=== PATIENT | male | born 1945 | race Caucasian/White ===

== ENCOUNTER 2016-10-31 18:13 | Emergency (ER) | payer MEDICARE, MEDICAID ==
[2016-10-31 18:42] LABS: ABSOLUTE BASOPHILS # (AUTO) 0.1 10^3/uL (0.0-0.2); ABSOLUTE EOSINOPHILS # (AUTO) 0.2 10^3/uL (0.0-0.6); ABSOLUTE LYMPHOCYTES (AUTO) 2.5 10^3/uL (0.5-4.7); ABSOLUTE MONOCYTES (AUTO) 0.5 10^3/uL (0.1-1.4); ABSOLUTE NEUT (AUTO) 3.7 10^3/uL (1.7-8.2); BASOPHILS % (AUTO) 0.8 % (0-2); EOSINOPHILS % (AUTO) 2.2 % (0-6); HEMATOCRIT 39.9 % (37.9-51.0); HEMOGLOBIN 13.5 g/dL (13.5-17.0); HGB HCT DIFFERENCE 0.6; LYMPHOCYTES % (AUTO) 35.9 % (13-45); MEAN CORPUSCULAR HEMOGLOBIN 29.6 pg (27.0-33.4); MEAN CORPUSCULAR HGB CONC 33.8 g/dL (32.0-36.0); MEAN CORPUSCULAR VOLUME 88 fl (80-97); MONOCYTES % (AUTO) 7.9 % (3-13); RED BLOOD COUNT 4.56 10^6/uL (4.35-5.55); RED CELL DISTRIBUTION WIDTH 16.5 % (11.5-14.0); SEGMENTED NEUTROPHILS % (AUTO) 53.2 % (42-78)
[2016-10-31 18:59] LABS: ALANINE AMINOTRANSFERASE 47 U/L (21-72); ALKALINE PHOSPHATASE 75 U/L (38-126); ANION GAP 14 (5-19); ASPARTATE AMINO TRANSFERASE 35 U/L (17-59); BILIRUBIN,TOTAL 0.5 mg/dL (0.2-1.3); BLOOD UREA NITROGEN 21 mg/dL (7-20); CALCIUM 10.6 mg/dL (8.4-10.2); CARBON DIOXIDE 26 mmol/L (22-30); CHLORIDE 103 mmol/L (98-107); CREATINE KINASE 174 U/L (55-170); CREATININE RESULT 1.41 mg/dL (0.52-1.25); GLUCOSE 135 mg/dL (75-110); POTASSIUM 4.2 mmol/L (3.6-5.0); SODIUM 142.7 mmol/L (137-145); TOTAL PROTEIN 6.9 g/dL (6.3-8.2)
[2016-10-31 19:12] LABS: TROPONIN I < 0.012 ng/mL
--- NOTE | 2016-10-31 20:47 | EKG REPORT ---
SEVERITY:- ABNORMAL ECG - SINUS RHYTHM RBBB AND LAFB : Confirmed by: Malu Kay MD 31-Oct-2016 20:45:36
[2016-10-31 22:33] VITALS: BP 162/84
--- NOTE | 2016-10-31 22:48 | ER Document Report ---
ED General - General Chief Complaint: Near Syncope Stated Complaint: SHORTNESS OF BREATH Notes: Patient is a 71-year-old male with past medical history of coronary artery disease, hypertension and hyperlipidemia who presents with a near syncopal episode. States that he was at a restaurant and got up to go to the restroom. He urinated and states when he began walking back to the table he began to feel lightheaded and somewhat short of breath. He was able to make it back to the table and sit down in his chair. States he's continued to be lightheaded and somewhat short of breath but was able to get up and lay down on the EMS stretcher without difficulty on his own. Since that time he states that his symptoms of all spontaneously resolved. He has had similar symptoms in the past. He denies any shortness of breath or chest pain at this time. He denies any chest pain during the episode. He also notes over the past 2 months he has had decreased exercise tolerance, noting that he is able to perform less activities at home secondary to becoming winded earlier than he used to. He has not spoken to his passport application examiner regarding his concerns. Denies anything improves or worsens his symptoms. No history of similar symptoms in the past. Denies any history of DVT or pulmonary embolus. TRAVEL OUTSIDE OF THE [place] IN LAST 30 DAYS: No - Related Data Allergies/Adverse Reactions: Sulfa (Sulfonamide Antibiotics) Allergy (Verified 01/31/16 13:51) Past Medical History - General Information source: Patient - Social History Smoking Status: Former Smoker Frequency of alcohol use: None Drug Abuse: None Lives with: Alone Family History: DM - Past Medical History Cardiac Medical History: Reports: Hx Atrial Fibrillation, Hx Hypercholesterolemia, Hx Hypertension Endocrine Medical History: Reports: Hx Diabetes Mellitus Type 2 Renal/ Medical History: Reports: Hx Kidney Stones Musculoskeltal Medical History: Reports Hx Arthritis, Reports Hx Gout Past Surgical History: Reports: Hx Appendectomy, Hx Cardiac Surgery - stent x2, Hx Cholecystectomy, Hx Urinary Tract Surgery - Bilateral ureteral stents placed 08-02-13. - Immunizations Immunizations up to date: No Hx Diphtheria, Pertussis, Tetanus Vaccination: No Review of Systems - Review of Systems Notes: Constitutional: Negative for fever. HENT: Negative for sore throat. Eyes: Negative for visual changes. Cardiovascular: Negative for chest pain. Respiratory: Negative for shortness of breath. Gastrointestinal: Negative for abdominal pain, vomiting or diarrhea. Genitourinary: Negative for dysuria. Musculoskeletal: Negative for back pain. Skin: Negative for rash. Neurological: Negative for headaches, weakness or numbness. 10 point ROS negative except as marked above and in HPI. Physical Exam - Vital signs Vitals: Temp Pulse Resp BP Pulse Ox 97.7 F 71 15 158/92 H 97 10/31/16 18:15 10/31/16 18:15 10/31/16 18:15 10/31/16 18:15 10/31/16 18:15 Interpretation: Hypertensive Notes: PHYSICAL EXAMINATION: GENERAL: Well-appearing, well-nourished and in no acute distress. HEAD: Atraumatic, normocephalic. EYES: Pupils equal round and reactive to light, extraocular movements intact, sclera anicteric, conjunctiva are normal. ENT: nares patent, oropharynx clear without exudates. Moist mucous membranes. NECK: Normal range of motion, supple without lymphadenopathy LUNGS: Breath sounds clear to auscultation bilaterally and equal. No wheezes rales or rhonchi. HEART: Regular rate and rhythm without murmurs ABDOMEN: Soft, nontender, normoactive bowel sounds. No guarding, no rebound. No masses appreciated. EXTREMITIES: Normal range of motion, no pitting or edema. No cyanosis. NEUROLOGICAL: No focal neurological deficits. Moves all extremities spontaneously and on command. PSYCH: Normal mood, normal affect. SKIN: Warm, Dry, normal turgor, no rashes or lesions noted. Course - Re-evaluation Re-evalutation: 10/31/16 22:45 Patient presents after a near syncopal episode with some apparent exertional dyspnea. At time of arrival patient is asymptomatic. He never had chest pain. His EKG is without ischemic changes. 2 troponins 3 hours apart are unremarkable. Patient has been having progressive weakness and worsening exertional dyspnea per his report over the last 2-3 months. The remainder of his labs are at baseline and his creatinine is somewhat improved relative to his normal. No focal exam findings. Patient does not have a murmur on exam to suggest critical aortic stenosis. Potassium level is normal. I have discussed with the patient that he will need to follow-up closely with his primary care physician as well as his passport application examiner as he may need a repeat stress test and catheterization given his progressively worsening exertional dyspnea. He is in agreement with this plan and has verbalized the need for close outpatient follow -up as well as return precautions. - Vital Signs Vital signs: Temp Pulse Resp BP Pulse Ox 98.2 F 71 13 162/84 H 97 10/31/16 23:01 10/31/16 18:15 10/31/16 22:01 10/31/16 22:01 10/31/16 22:01 - Laboratory Result Diagrams: 10/31/16 18:24 10/31/16 18:24 Laboratory results interpreted by me: 10/31/16 10/31/16 10/31/16 18:24 18:24 18:24 RDW 16.5 H BUN 21 H Creatinine 1.41 H Est GFR (Non-Af Amer) 49 L Glucose 135 H Calcium 10.6 H Creatine Kinase 174 H CK-MB (CK-2) 6.40 H - Diagnostic Test Radiology reviewed: Image reviewed, Reports reviewed Radiology results interpreted by me: 10/31/16 22:47 Chest x-ray: No acute infiltrate or pneumothorax - EKG Interpretation by Me Additional EKG results interpreted by me: 10/31/16 22:47 Normal sinus rhythm. Rate 70. No ST elevations. QTC is 419. 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 QTC is 419. Discharge - Discharge Clinical Impression: Near syncope Condition: Good Disposition: HOME, SELF-CARE Additional Instructions: Please follow closely with her primary care doctor as well as your passport application examiner regarding today's episode. Return if you pass out, have chest pain, worsening shortness of breath, or any other symptoms that are worrisome to you. Referrals: CARLO KWON MD [Primary Care Provider] - Follow up as needed
== END 2016-10-31 23:11 | disposition home or self-care (01) ==
LOC: ER 18:13
DX: R55 Syncope and collapse (principal); R06.02 Shortness of breath; R53.1 Weakness; I25.10 Atherosclerotic heart disease of native coronary artery without angina pectoris; I10 Essential (primary) hypertension; E78.5 Hyperlipidemia, unspecified; I48.91 Unspecified atrial fibrillation; E78.00 Pure hypercholesterolemia, unspecified; Z88.2 Allergy status to sulfonamides; Z87.891 Personal history of nicotine dependence; Z87.442 Personal history of urinary calculi; Z90.49 Acquired absence of other specified parts of digestive tract
CPT/HCPCS: 36415; 71010; 80053; 82550; 82553; 84484; 85025; 93005; 93010; 99285

== ENCOUNTER → 2017-02-17 | Outpatient (CLI) | payer MEDICARE, MEDICAID ==
--- NOTE | 2017-02-17 16:08 | RADIOLOGY REPORT (SQ) ---
EXAM DESCRIPTION: U/S RETROPERITON (RENAL/AORTA) COMPLETED DATE/TIME: 02/17/2017 2:32 pm REASON FOR STUDY: CHRONIC KIDNEY DISEASE N18.9 CHRONIC KIDNEY DISEASE, UNSPECIFIED COMPARISON: None. TECHNIQUE: Dynamic and static grayscale images acquired of the kidneys and bladder and recorded on P ACS. Additional selected color Doppler and spectral images recorded. LIMITATIONS: None. FINDINGS: RIGHT KIDNEY: Normal size, 12.6 cm. Approximately 6 cm lower pole cyst. No hydronephrosi s. LEFT KIDNEY: Enlarged, 16.3 cm. Chronic dilatation of the collecting system. Caliectasis. Renal p lizbeth measures about 4.4 cm. BLADDER: No masses. OTHER FINDINGS: No other significant finding. IMPRESSION: Chronically dilated collecting system on the left. Large cyst right kidney. TECHNICAL DOCUMENTATION: JOB ID: [id number] [employer]- All Rights Reserved
== END ==
LOC: RAD 13:31
PROVIDERS: ATTEND Internal Medicine
DX: N18.9 Chronic kidney disease, unspecified (principal); N28.1 Cyst of kidney, acquired
CPT/HCPCS: 76770

== ENCOUNTER → 2017-06-22 | Day surgery (SDC) | payer MEDICARE, MEDICAID ==
[~2017-06-22] MED LIST: CHONDR SU A NA/HYALUR INTRAOC KIT (SURGICARE) ONE; EPINEPHRINE INJ/PF 1 MG/1 ML AMPULE ONE; FENTANYL CITRATE INJ/PF 100 MCG/2 ML AMPUL ONE; KETOROLAC TROMETHAMINE 0.45% 4 DROP/0.4 ML DROPERETTE OS PRN; LIDOCAINE 1% INJ-PF (10 MG/ML) 30 ML SDV ONE; MIDAZOLAM 2 MG/2 ML INJ ONE; PROPOFOL INJ 200 MG/20 ML VIAL IV ONE
[2017-06-22] MEDS: TETRACAINE HCL 0.5% OPH SOLN 0.6 ML DROPERETTE OS PRN ×3 (07:54→08:32)
[2017-06-22] MEDS: CYCLOPENTOLATE 0.2%/PHENYLEPHRINE 1% OPH SOLN 2 ML OS PRN ×3 (07:54→08:20)
[2017-06-22] MEDS: TROPICAMIDE 1% OPH SOLN 3 ML OS PRN ×3 (07:55→08:20)
[2017-06-22] MEDS: BESIFLOXACIN HCL 0.6% OPH SUSP 5 ML BOTTLE OS PRN ×4 (07:55→08:52)
[2017-06-22] MEDS: TOBRAMYCIN SULFATE/DEXAMETH OPH OINTMENT 3.5 GM ONE ×2 (08:52)
== END ==
LOC: SC 07:07
PROVIDERS: ATTEND Ophthalmology
PROC: 08RK3JZ Replacement of Left Lens with Synthetic Substitute, Percutaneous Approach (ICD-10-PCS; principal; 2017-06-22 08:15)
DX: H25.12 Age-related nuclear cataract, left eye (principal); Z98.41 Cataract extraction status, right eye; M19.90 Unspecified osteoarthritis, unspecified site; I25.10 Atherosclerotic heart disease of native coronary artery without angina pectoris; M10.9 Gout, unspecified; E11.9 Type 2 diabetes mellitus without complications; E78.00 Pure hypercholesterolemia, unspecified; I10 Essential (primary) hypertension; E07.9 Disorder of thyroid, unspecified; N40.0 Benign prostatic hyperplasia without lower urinary tract symptoms; Z79.82 Long term (current) use of aspirin; Z79.899 Other long term (current) drug therapy; Z79.84 Long term (current) use of oral hypoglycemic drugs
CPT/HCPCS: 82962; 66984; V2630; J2250; J3490 ×3; A9270; J0171; J3010 ×2; J2704; 142

== ENCOUNTER 2017-06-26 12:25 | Emergency (ER) | payer MEDICARE, MEDICAID ==
--- NOTE | 2017-06-26 12:47 | ER Document Report ---
ED Medical Screen (RME) - General Stated Complaint: WEAKNESS Time Seen by Provider: 06/26/17 12:42 Notes: 72-year-old male patient with past history of hypertension, hyperlipidemia, type 2 diabetes, coronary artery disease, BPH, hyperuricemia. He was at the flea market today, was sitting and needed to go to the outside toilet. He reports walking about 50 feet, to the toilet, then another 50 feet to another area and began to feel out of breath. I have greeted and performed a rapid initial assessment of this patient. A comprehensive ED assessment and evaluation of the patient, analysis of test results and completion of the medical decision making process will be conducted by additional ED providers. TRAVEL OUTSIDE OF THE [place] IN LAST 30 DAYS: No - Related Data Allergies/Adverse Reactions: Sulfa (Sulfonamide Antibiotics) Allergy (Verified 06/22/17 08:23) Past Medical History - Social History Chew tobacco use (# tins/day): No Frequency of alcohol use: None Drug Abuse: None - Past Medical History Cardiac Medical History: Reports: Hx Atrial Fibrillation, Hx Coronary Artery Disease, Hx Hypercholesterolemia, Hx Hypertension - NOT NOW,LOST WEIGHT Denies: Hx Heart Attack Pulmonary Medical History: Reports: Hx Bronchitis, Hx Pneumonia Denies: Hx Asthma, Hx COPD Neurological Medical History: Reports: Hx Seizures - YEARS AGO,I THINK IT WAS THE VALIUM,STOPPED DILANTIN 10 YRS. Denies: Hx Cerebrovascular Accident Endocrine Medical History: Reports: Hx Diabetes Mellitus Type 2 Renal/ Medical History: Reports: Hx Kidney Stones. Denies: Hx Peritoneal Dialysis GI Medical History: Reports: Hx Ulcer - YEARS AGO. Denies: Hx Hepatitis, Hx Hiatal Hernia Musculoskeltal Medical History: Reports Hx Arthritis, Reports Hx Gout Infectious Medical History: Denies: Hx Hepatitis Past Surgical History: Reports: Hx Appendectomy, Hx Cardiac Catheterization, Hx Cardiac Surgery - stent x2, Hx Cholecystectomy, Hx Coronary Stent, Hx Urinary Tract Surgery - Bilateral ureteral stents placed 08-02-13.. Denies: Hx Open Heart Surgery, Hx Pacemaker - Immunizations Immunizations up to date: No Hx Diphtheria, Pertussis, Tetanus Vaccination: No History of Influenza Vaccine for 05/2017 - 10/2017 Season: No Physical Exam - Vital signs Vitals: Temp Pulse Resp BP Pulse Ox 98.6 F 77 14 143/85 H 96 06/26/17 12:29 06/26/17 12:29 06/26/17 12:29 06/26/17 12:29 06/26/17 12:29 Course - Vital Signs Vital signs: Temp Pulse Resp BP Pulse Ox 98.6 F 77 14 143/85 H 96 06/26/17 12:29 06/26/17 12:29 06/26/17 12:29 06/26/17 12:29 06/26/17 12:29
[2017-06-26 13:23] LABS: ABSOLUTE BASOPHILS # (AUTO) 0.1 10^3/uL (0.0-0.2); ABSOLUTE EOSINOPHILS # (AUTO) 0.1 10^3/uL (0.0-0.6); ABSOLUTE LYMPHOCYTES (AUTO) 2.5 10^3/uL (0.5-4.7); ABSOLUTE MONOCYTES (AUTO) 0.6 10^3/uL (0.1-1.4); ABSOLUTE NEUT (AUTO) 4.7 10^3/uL (1.7-8.2); BASOPHILS % (AUTO) 0.8 % (0-2); EOSINOPHILS % (AUTO) 1.7 % (0-6); HEMATOCRIT 41.9 % (37.9-51.0); HEMOGLOBIN 14.5 g/dL (13.5-17.0); HGB HCT DIFFERENCE 1.6; LYMPHOCYTES % (AUTO) 30.8 % (13-45); MEAN CORPUSCULAR HEMOGLOBIN 30.5 pg (27.0-33.4); MEAN CORPUSCULAR HGB CONC 34.5 g/dL (32.0-36.0); MEAN CORPUSCULAR VOLUME 89 fl (80-97); RED BLOOD COUNT 4.74 10^6/uL (4.35-5.55); RED CELL DISTRIBUTION WIDTH 16.3 % (11.5-14.0); SEGMENTED NEUTROPHILS % (AUTO) 58.7 % (42-78); WHITE BLOOD COUNT 8.1 10^3/uL (4.0-10.5)
[2017-06-26 13:35] LABS: APPEARANCE,URINE CLOUDY; BILIRUBIN,URINE NEGATIVE (NEGATIVE); GLUCOSE, URINE NEGATIVE (NEGATIVE); KETONES,URINE NEGATIVE (NEGATIVE); LEUKOCYTE ESTERASE,URINE LARGE (NEGATIVE); NITRITE,URINE NEGATIVE (NEGATIVE); PROTEIN,URINE NEGATIVE (NEGATIVE); URINE SPECIFIC GRAVITY 1.015; UROBILINOGEN,URINE NEGATIVE mg/dL (<2.0)
--- NOTE | 2017-06-26 13:37 | RADIOLOGY REPORT (SQ) ---
EXAM DESCRIPTION: CHEST PA/LAT COMPLETED DATE/TIME: 06/26/2017 1:23 pm REASON FOR STUDY: HOUSE COMPARISON: 01/31/2016 EXAM PARAMETERS: NUMBER OF VIEWS: two views TECHNIQUE: Digital Frontal and Lateral radiographic views of the chest acquired. RADIATION DOSE: NA LIMITATIONS: none FINDINGS: LUNGS AND PLEURA: No opacities, masses or pneumothorax. No pleural effusion. MEDIASTINUM AND HILAR STRUCTURES: No masses or contour abnormalities. HEART AND VASCULAR STRUCTURES: Heart normal size. No evidence for failure. BONES: No acute findings. HARDWARE: None in the chest. OTHER: No other significant finding. IMPRESSION: NO SIGNIFICANT RADIOGRAPHIC FINDING IN THE CHEST. TECHNICAL DOCUMENTATION: JOB ID: [id number] [employer]- All Rights Reserved
[2017-06-26 13:39] LABS: ALANINE AMINOTRANSFERASE 57 U/L (21-72); ALBUMIN 4.2 g/dL (3.5-5.0); ALKALINE PHOSPHATASE 82 U/L (38-126); ANION GAP 13 (5-19); ASPARTATE AMINO TRANSFERASE 42 U/L (17-59); BILIRUBIN,DIRECT 0.3 mg/dL (0.0-0.4); BILIRUBIN,TOTAL 0.6 mg/dL (0.2-1.3); BLOOD UREA NITROGEN 22 mg/dL (7-20); CALCIUM 10.6 mg/dL (8.4-10.2); CARBON DIOXIDE 26 mmol/L (22-30); CHLORIDE 101 mmol/L (98-107); CREATINE KINASE 249 U/L (55-170); CREATININE RESULT 1.43 mg/dL (0.52-1.25); GLUCOSE 160 mg/dL (75-110); POTASSIUM 4.7 mmol/L (3.6-5.0); SODIUM 139.8 mmol/L (137-145); TOTAL PROTEIN 7.3 g/dL (6.3-8.2)
[2017-06-26 13:54] LABS: TROPONIN I < 0.012 ng/mL
--- NOTE | 2017-06-26 14:01 | EKG REPORT ---
SEVERITY:- ABNORMAL ECG - SINUS RHYTHM RBBB AND LAFB : Confirmed by: Pritesh Kiran MD 26-Jun-2017 14:00:23
--- NOTE | 2017-06-26 14:16 | ER Document Report ---
ED General - General Chief Complaint: Weakness Stated Complaint: WEAKNESS Time Seen by Provider: 06/26/17 12:42 Mode of Arrival: Ambulatory Information source: Patient Notes: 72-year-old male presents with complaints of urinary frequency for the past 3-4 days. Patient admits to not feeling 100% but denies any pain anywhere denies any fevers or chills denies any nausea vomiting or diarrhea. Patient denies any dizziness TRAVEL OUTSIDE OF THE [place] IN LAST 30 DAYS: No - HPI Onset: Last week Onset/Duration: Intermittent Quality of pain: No pain Severity: Mild Pain Level: Denies Associated symptoms: Other Exacerbated by: Denies Relieved by: Denies Similar symptoms previously: No Recently seen / treated by doctor: No - Related Data Allergies/Adverse Reactions: Sulfa (Sulfonamide Antibiotics) Allergy (Verified 06/22/17 08:23) Past Medical History - Social History Smoking Status: Never Smoker Cigarette use (# per day): No Chew tobacco use (# tins/day): No Smoking Education Provided: No Frequency of alcohol use: None Drug Abuse: None Family History: DM, Reviewed & Not Pertinent Patient has suicidal ideation: No Patient has homicidal ideation: No - Past Medical History Cardiac Medical History: Reports: Hx Atrial Fibrillation, Hx Coronary Artery Disease, Hx Hypercholesterolemia, Hx Hypertension - NOT NOW,LOST WEIGHT Denies: Hx Heart Attack Pulmonary Medical History: Reports: Hx Bronchitis, Hx Pneumonia Denies: Hx Asthma, Hx COPD Neurological Medical History: Reports: Hx Seizures - YEARS AGO,I THINK IT WAS THE VALIUM,STOPPED DILANTIN 10 YRS. Denies: Hx Cerebrovascular Accident Endocrine Medical History: Reports: Hx Diabetes Mellitus Type 2 Renal/ Medical History: Reports: Hx Kidney Stones. Denies: Hx Peritoneal Dialysis GI Medical History: Reports: Hx Ulcer - YEARS AGO. Denies: Hx Hepatitis, Hx Hiatal Hernia Musculoskeltal Medical History: Reports Hx Arthritis, Reports Hx Gout Infectious Medical History: Denies: Hx Hepatitis Past Surgical History: Reports: Hx Appendectomy, Hx Cardiac Catheterization, Hx Cardiac Surgery - stent x2, Hx Cholecystectomy, Hx Coronary Stent, Hx Urinary Tract Surgery - Bilateral ureteral stents placed 08-02-13.. Denies: Hx Open Heart Surgery, Hx Pacemaker - Immunizations Immunizations up to date: No Hx Diphtheria, Pertussis, Tetanus Vaccination: No Review of Systems - Review of Systems Notes: REVIEW OF SYSTEMS: CONSTITUTIONAL : Denies fever, chills, or sweats. Denies recent illness. EENT: Denies eye, ear, throat, or mouth pain or symptoms. Denies nasal or sinus congestion or discharge. Denies throat, tongue, or mouth swelling or difficulty swallowing. CARDIOVASCULAR: Denies chest pain. Denies palpitations or racing or irregular heart beat. Denies ankle edema. RESPIRATORY: Denies cough, cold, or chest congestion. Denies shortness of breath, difficulty breathing, or wheezing. GASTROINTESTINAL: Denies abdominal pain or distention. Denies nausea, vomiting , or diarrhea. Denies blood in vomitus, stools, or per rectum. Denies black, tarry stools. Denies constipation. GENITOURINARY: Admits to urinary frequency MUSCULOSKELETAL: Denies back or neck pain or stiffness. Denies joint pain or swelling. SKIN: Denies rash, lesions or sores. HEMATOLOGIC : Denies easy bruising or bleeding. LYMPHATIC: Denies swollen, enlarged glands. NEUROLOGICAL: Denies confusion or altered mental status. Denies passing out or loss of consciousness. Denies dizziness or lightheadedness. Denies headache. Denies weakness or paralysis or loss of use of either side. Denies problems with gait or speech. Denies sensory loss, numbness, or tingling. Denies seizures. PSYCHIATRIC: Denies anxiety or stress. Denies depression, suicidal ideation, or homicidal ideation. ALL OTHER SYSTEMS REVIEWED AND NEGATIVE. Dictation was performed using [employer] voice recognition software PHYSICAL EXAMINATION: GENERAL: Well-appearing, well-nourished and in no acute distress. HEAD: Atraumatic, normocephalic. EYES: Pupils equal round and reactive to light, extraocular movements intact, sclera anicteric, conjunctiva are normal. ENT: Nares patent, oropharynx clear without exudates. Moist mucous membranes. NECK: Normal range of motion, supple without lymphadenopathy LUNGS: Breath sounds clear to auscultation bilaterally and equal. No wheezes rales or rhonchi. HEART: Regular rate and rhythm without murmurs ABDOMEN: Soft, nontender, nondistended abdomen. No guarding, no rebound. No masses appreciated. Musculoskeletal: Normal range of motion, no pitting or edema. No cyanosis. NEUROLOGICAL: Cranial nerves grossly intact. Normal speech, normal gait. Normal sensory, motor exams PSYCH: Normal mood, normal affect. SKIN: Warm, Dry, normal turgor, no rashes or lesions noted. Physical Exam - Vital signs Vitals: Temp Pulse Resp BP Pulse Ox 98.6 F 77 14 143/85 H 96 06/26/17 12:29 06/26/17 12:29 06/26/17 12:29 06/26/17 12:29 06/26/17 12:29 Course - Re-evaluation Re-evalutation: 06/26/17 16:04 Urinalysis is consistent with a urinary tract infection, urine cultures pending patient will be started on antibiotics. Given that he feels no pain at all I very low suspicion for infected stone 06/26/17 16:05 I had a very long discussion with the patient versus health his cars and the overall looks quite well I will discharge home with close follow-up After performing a Medical Screening Examination, I estimate there is LOW risk for ACUTE APPENDICITIS, BOWEL OBSTRUCTION, ACUTE CHOLECYSTITIS, PERFORATED DIVERTICULITIS, INCARCERATED HERNIA, PANCREATITIS, TESTICULAR TORSION or PERFORATED ULCER, thus I consider the discharge disposition reasonable. Also, there is no evidence or peritonitis, sepsis, or toxicity. I have reevaluated this patient multiple times and no significant life threatening changes are noted. The patient and I have discussed the diagnosis and risks, and we agree with discharging home with close follow-up with the understanding that symptoms and presentations can change. We also discussed returning to the Emergency Department immediately if new or worsening symptoms occur. We have discussed the symptoms which are most concerning (e.g., bloody stool, fever, changing or worsening pain, intractable vomiting - standard verbal up date) that necessitate immediate return. - Vital Signs Vital signs: Temp Pulse Resp BP Pulse Ox 98.0 F 71 18 151/90 H 97 06/26/17 14:28 06/26/17 14:28 06/26/17 14:28 06/26/17 14:28 06/26/17 14:28 - Laboratory Result Diagrams: 06/26/17 13:10 06/26/17 13:10 Laboratory results interpreted by me: 06/26/17 06/26/17 06/26/17 13:10 13:10 13:10 RDW 16.3 H BUN 22 H Creatinine 1.43 H Est GFR ( Amer) 59 L Est GFR (Non-Af Amer) 48 L Glucose 160 H Calcium 10.6 H Creatine Kinase 249 H Urine Blood LARGE H Ur Leukocyte Esterase LARGE H Discharge - Discharge Clinical Impression: Weakness UTI (urinary tract infection) Qualifiers: Urinary tract infection type: acute cystitis Hematuria presence: with hematuria Qualified Code(s): N30.01 - Acute cystitis with hematuria Condition: Stable Disposition: HOME, SELF-CARE Instructions: Urinary Tract Infection ([facility]) Prescriptions: Ciprofloxacin HCl [Cipro 500 mg Tablet] 500 mg PO BID #10 tablet Referrals: CARLO KWON MD [Primary Care Provider] - Follow up tomorrow
[2017-06-26 14:29] VITALS: BP 151/90
== END 2017-06-26 14:36 | disposition home or self-care (01) ==
LOC: ER 12:25
DX: N30.01 Acute cystitis with hematuria (principal); R53.1 Weakness; R35.0 Frequency of micturition; I25.10 Atherosclerotic heart disease of native coronary artery without angina pectoris; E11.9 Type 2 diabetes mellitus without complications; Z88.2 Allergy status to sulfonamides; Z87.442 Personal history of urinary calculi; Z95.5 Presence of coronary angioplasty implant and graft
CPT/HCPCS: 36415; 71020; 80053; 81001; 82550; 83880; 84484; 85025; 87086; 93005; 93010; 99285

== ENCOUNTER 2017-08-20 14:17 | Emergency (ER) | payer MEDICARE, MEDICAID ==
[2017-08-20 16:52] VITALS: BP 142/88
--- NOTE | 2017-08-20 16:53 | ER Document Report ---
HPI - HPI Patient complains to provider of: skin lesion Pain Level: 0 Context: Patient is a 72-year-old male who presents emergency department complaining of a skin lesion on the flexor surface of his left wrist that is been present for approximately 4-5 weeks. Patient denies any direct trauma, redness, swelling he states that he has not seen his primary care provider regarding this. He does admit to history of skin cancer. His primary care is Dr. Kwon - CONSTITUTIONAL Constitutional: DENIES: Fever, Chills Past Medical History - Social History Smoking Status: Never Smoker Chew tobacco use (# tins/day): No Frequency of alcohol use: Occasional Drug Abuse: None Family History: DM, Reviewed & Not Pertinent Patient has suicidal ideation: No Patient has homicidal ideation: No - Past Medical History Cardiac Medical History: Reports: Hx Atrial Fibrillation, Hx Coronary Artery Disease, Hx Hypercholesterolemia, Hx Hypertension - NOT NOW,LOST WEIGHT Denies: Hx Heart Attack Pulmonary Medical History: Reports: Hx Bronchitis, Hx Pneumonia Denies: Hx Asthma, Hx COPD Neurological Medical History: Reports: Hx Seizures - YEARS AGO,I THINK IT WAS THE VALIUM,STOPPED DILANTIN 10 YRS. Denies: Hx Cerebrovascular Accident Endocrine Medical History: Reports: Hx Diabetes Mellitus Type 2 Renal/ Medical History: Reports: Hx Kidney Stones. Denies: Hx Peritoneal Dialysis GI Medical History: Reports: Hx Ulcer - YEARS AGO. Denies: Hx Hepatitis, Hx Hiatal Hernia Musculoskeltal Medical History: Reports Hx Arthritis, Reports Hx Gout Infectious Medical History: Denies: Hx Hepatitis Past Surgical History: Reports: Hx Appendectomy, Hx Cardiac Catheterization, Hx Cardiac Surgery - stent x2, Hx Cholecystectomy, Hx Coronary Stent, Hx Urinary Tract Surgery - Bilateral ureteral stents placed 08-02-.. Denies: Hx Open Heart Surgery, Hx Pacemaker - Immunizations Immunizations up to date: No Hx Diphtheria, Pertussis, Tetanus Vaccination: No Vertical Provider Document - CONSTITUTIONAL Agree With Documented VS: Yes Notes: PHYSICAL EXAM GENERAL: Alert, interacts well. EXTREMITIES: Moves all 4 extremities spontaneously. No edema, radial pulses 2/4 bilaterally. Cap refill < 2 seconds bilaterally. No cyanosis. NEUROLOGICAL: Alert and oriented x4. Normal speech. PSYCH: Normal affect, normal mood. SKIN: Warm, dry, normal turgor. 2cm in diameter lesion just proximal to the wrist on the - INFECTION CONTROL TRAVEL OUTSIDE OF THE [place] IN LAST 30 DAYS: No - RESPIRATORY O2 Sat by Pulse Oximetry: 95 Course - Re-evaluation Re-evalutation: 08/20/17 16:51 Patient is a 72-year-old male is hemodynamically stable, no acute distress and afebrile. Presentation is concerning for a possible skin carcinoma.low clinical suspicion for abscess given no surrounding cellulitis, induration. Discussed with patient that we are not able to perform biopsies in the emergency department and he will need to follow-up with a cloth bleaching supervisor or surgeon for biopsy and further evaluation. Patient agrees with plan and stable for discharge home - Vital Signs Vital signs: Temp Pulse Resp BP Pulse Ox 98.4 F 79 16 128/74 H 95 08/20/17 14:38 08/20/17 14:38 08/20/17 14:38 08/20/17 14:38 08/20/17 14:38 Discharge - Discharge Clinical Impression: Skin lesion Condition: Good Disposition: HOME, SELF-CARE Additional Instructions: Your complaint today is concerning for skin cancer. We cannot biopsy this in the ER, you need to follow up with the doctors listed to schedule and appointment for evaluation and biopsy Referrals: CARLO KWON MD [Primary Care Provider] - Follow up as needed RC SANCHEZ MD [[facility]] - Follow up as needed RANDY GUEVARA DO [ACTIVE STAFF] - 08/22/17 (Spray Blender, call on Tuesday)
== END 2017-08-20 17:00 | disposition home or self-care (01) ==
LOC: ER 14:17
DX: L98.8 Other specified disorders of the skin and subcutaneous tissue (principal); Z85.828 Personal history of other malignant neoplasm of skin
CPT/HCPCS: 99283

== ENCOUNTER → 2018-03-03 | Outpatient (CLI) | payer MEDICARE, MEDICAID ==
--- NOTE | 2018-03-03 15:02 | RADIOLOGY REPORT (SQ) ---
EXAM DESCRIPTION: CT ABD/PELVIS NO ORAL OR IV COMPLETED DATE/TIME: 03/03/2018 2:13 pm REASON FOR STUDY: KIDNEY STONE (N20.0) R31.9 HEMATURIA, UNSPECIFIED N20.0 CALCULUS OF KIDNEY COMPARISON: Renal ultrasound 02/17/2017 CT abdomen and pelvis 08/01/2013 TECHNIQUE: CT scan of the abdomen and pelvis performed without intravenous or oral contrast. Images reviewed with lung, soft tissue, and bone windows. Reconstructed coronal and sagittal MPR images revi ewed. All images stored on PACS. All CT scanners at this facility use dose modulation, iterative reconstruction, and/or weight based d osing when appropriate to reduce radiation dose to as low as reasonably achievable (ALARA). [facility]: Dose Right [facility]: CareDose [facility]: Dose Right [facility]: Teradose 4D [facility]: Smart Drone.io RADIATION DOSE: CT Rad equipment meets quality standard of care and radiation dose reduction techniq ues were employed. CTDIvol: 11.6 mGy. DLP: 657 mGy-cm.mGy. LIMITATIONS: None. FINDINGS: On the left side, marked hydronephrosis and upper hydroureter is present down to the mid 3 rd ureter at about the level of the L5-S1 disc space. At this point, a high-grade ureteral stricture is present with stones stacked in the left mid ureter just superior to the stricture. These changes are best shown on coronal images 55-69. Left ureteral stones measure 4 to 5 mm in diameter. Remainder of the left kidney demonstrates profound cortical thinning, with multiple tiny intrarenal n onobstructive less than 3 mm calculi. No cysts. No masses. LOWER CHEST: Hiatal hernia. Lung bases are clear. NON-CONTRASTED LIVER, SPLEEN, ADRENALS: Evaluation limited by lack of IV contrast. No identified sign ificant masses. PANCREAS: No masses. No peripancreatic inflammatory changes. GALLBLADDER: Surgically absent RIGHT KIDNEY AND URETER: No suspicious masses. Assessment limited by lack of IV contrast. 3 cm cyst right upper pole kidney. 8 cm cyst right mid-pole kidney. 6 mm right midpole intrarenal collecting system stone or 100 Hounsfield units in density. Multiple 1 to 2 mm right lower pole intrarenal nono bstructive stones. No hydronephrosis or hydroureter. LEFT KIDNEY AND URETER: As above AORTA AND RETROPERITONEUM: No aneurysm. No retroperitoneal masses or adenopathy. BOWEL AND PERITONEAL CAVITY: No obvious masses or inflammatory changes. No free fluid. APPENDIX: Surgically absent PELVIS, BLADDER, AND ABDOMINAL WALL:No abnormal masses. No free fluid. Bladder normal. BONES: Diffuse degenerative changes throughout the lumbar spine OTHER: No other significant finding. IMPRESSION: Left mid 3rd ureteral stricture at about the level of the L5-S1 disc space. Multiple sm all stones stacked in the left ureter above the stricture. Marked left upper hydronephrosis and hydr oureter, progressive since 2012 CT abdomen pelvis. COMMENT: Quality ID # [id number]: Final reports with documentation of one or more dose reduction techniques (e.g., Automated exposure control, adjustment of the mA and/or kV according to patient size, use of iterative reconstruction technique) TECHNICAL DOCUMENTATION: JOB ID: [id number] [employer]- All Rights Reserved Reading location - IP/workstation name: [email or web address]
== END ==
LOC: RAD 13:46
PROVIDERS: ATTEND Internal Medicine
DX: N20.0 Calculus of kidney (principal); N13.30 Unspecified hydronephrosis
CPT/HCPCS: 74176

== ENCOUNTER 2018-03-25 13:03 | Emergency (ER) | payer MEDICARE, MEDICAID ==
--- NOTE | 2018-03-25 13:41 | ER Document Report ---
ED Medical Screen (RME) - General Chief Complaint: Shortness Of Breath Stated Complaint: SHORTNESS OF BREATH Time Seen by Provider: 03/25/18 13:33 Mode of Arrival: Wheelchair Information source: Patient TRAVEL OUTSIDE OF THE [place] IN LAST 30 DAYS: No - HPI Patient complains to provider of: sob Onset: This morning - pt with onset of SOB this am -- denies CP - Related Data Allergies/Adverse Reactions: Sulfa (Sulfonamide Antibiotics) Allergy (Verified 03/25/18 13:04) Past Medical History - Social History Chew tobacco use (# tins/day): No Frequency of alcohol use: Rare Drug Abuse: None - Past Medical History Cardiac Medical History: Reports: Hx Atrial Fibrillation, Hx Coronary Artery Disease, Hx Hypercholesterolemia, Hx Hypertension - NOT NOW,LOST WEIGHT Denies: Hx Heart Attack Pulmonary Medical History: Reports: Hx Bronchitis, Hx Pneumonia Denies: Hx Asthma, Hx COPD Neurological Medical History: Reports: Hx Seizures - YEARS AGO,I THINK IT WAS THE VALIUM,STOPPED DILANTIN 10 YRS. Denies: Hx Cerebrovascular Accident Endocrine Medical History: Reports: Hx Diabetes Mellitus Type 2 Renal/ Medical History: Reports: Hx Kidney Stones. Denies: Hx Peritoneal Dialysis GI Medical History: Reports: Hx Ulcer - YEARS AGO. Denies: Hx Hepatitis, Hx Hiatal Hernia Musculoskeltal Medical History: Reports Hx Arthritis, Reports Hx Gout Infectious Medical History: Denies: Hx Hepatitis Past Surgical History: Reports: Hx Appendectomy, Hx Cardiac Catheterization, Hx Cardiac Surgery - stent x2, Hx Cholecystectomy, Hx Coronary Stent, Hx Urinary Tract Surgery - Bilateral ureteral stents placed 08-02-.. Denies: Hx Open Heart Surgery, Hx Pacemaker - Immunizations Immunizations up to date: No Hx Diphtheria, Pertussis, Tetanus Vaccination: No History of Influenza Vaccine for 05/2017 - 10/2017 Season: No Physical Exam - Vital signs Vitals: Temp Pulse Resp BP Pulse Ox 98.4 F 73 16 110/78 95 03/25/18 13:21 03/25/18 13:21 03/25/18 13:21 03/25/18 13:21 03/25/18 13:21 Course - Vital Signs Vital signs: Temp Pulse Resp BP Pulse Ox 98.4 F 73 16 110/78 95 03/25/18 13:21 03/25/18 13:21 03/25/18 13:21 03/25/18 13:21 03/25/18 13:21 Doctor's Discharge - Discharge Referrals: CARLO KWON MD [Primary Care Provider] - Follow up as needed
[2018-03-25 14:21] LABS: ABSOLUTE EOSINOPHILS # (AUTO) 0.1 10^3/uL (0.0-0.6); ABSOLUTE LYMPHOCYTES (AUTO) 2.4 10^3/uL (0.5-4.7); ABSOLUTE MONOCYTES (AUTO) 0.5 10^3/uL (0.1-1.4); ABSOLUTE NEUT (AUTO) 3.6 10^3/uL (1.7-8.2); BASOPHILS % (AUTO) 0.7 % (0-2); HEMATOCRIT 45.5 % (37.9-51.0); HEMOGLOBIN 15.2 g/dL (13.5-17.0); LYMPHOCYTES % (AUTO) 35.7 % (13-45); MEAN CORPUSCULAR HGB CONC 33.5 g/dL (32.0-36.0); MEAN CORPUSCULAR VOLUME 87 fl (80-97); MONOCYTES % (AUTO) 7.9 % (3-13); PLATELET COUNT 178 10^3/uL (150-450); RED BLOOD COUNT 5.25 10^6/uL (4.35-5.55); RED CELL DISTRIBUTION WIDTH 17.5 % (11.5-14.0); SEGMENTED NEUTROPHILS % (AUTO) 53.7 % (42-78); TOTAL CELLS COUNTED % (AUTO) 100 %; WHITE BLOOD COUNT 6.8 10^3/uL (4.0-10.5)
--- NOTE | 2018-03-25 14:29 | RADIOLOGY REPORT (SQ) ---
EXAM DESCRIPTION: CHEST 2 VIEWS COMPLETED DATE/TIME: 03/25/2018 2:19 pm REASON FOR STUDY: sob COMPARISON: 06/26/2017 EXAM PARAMETERS: NUMBER OF VIEWS: two views TECHNIQUE: Digital Frontal and Lateral radiographic views of the chest acquired. RADIATION DOSE: NA LIMITATIONS: none FINDINGS: LUNGS AND PLEURA: No opacities, masses or pneumothorax. No pleural effusion. MEDIASTINUM AND HILAR STRUCTURES: No masses or contour abnormalities. HEART AND VASCULAR STRUCTURES: Heart normal size. No evidence for failure. BONES: No acute findings. HARDWARE: Right upper quadrant surgical clips. OTHER: No other significant finding. IMPRESSION: NO ACUTE RADIOGRAPHIC FINDING IN THE CHEST. TECHNICAL DOCUMENTATION: JOB ID: [id number] [employer]- All Rights Reserved Reading location - IP/workstation name: [email or web address]
[2018-03-25 14:44] LABS: ALANINE AMINOTRANSFERASE 35 U/L (21-72); ALBUMIN 3.9 g/dL (3.5-5.0); ALKALINE PHOSPHATASE 71 U/L (38-126); ANION GAP 11 (5-19); ASPARTATE AMINO TRANSFERASE 36 U/L (17-59); BILIRUBIN,DIRECT 0.3 mg/dL (0.0-0.4); BILIRUBIN,TOTAL 0.6 mg/dL (0.2-1.3); BLOOD UREA NITROGEN 21 mg/dL (7-20); CALCIUM 10.4 mg/dL (8.4-10.2); CARBON DIOXIDE 28 mmol/L (22-30); CHLORIDE 103 mmol/L (98-107); CREATINE KINASE 279 U/L (55-170); GLUCOSE 119 mg/dL (75-110); POTASSIUM 4.9 mmol/L (3.6-5.0); SODIUM 142.1 mmol/L (137-145); TOTAL PROTEIN 6.9 g/dL (6.3-8.2)
[2018-03-25 15:10] LABS: CREATINE KINASE MB 6.25 ng/mL (<4.55)
[2018-03-25 15:13] LABS: TROPONIN I < 0.012 ng/mL
--- NOTE | 2018-03-25 16:25 | ER Document Report ---
ED General - General Chief Complaint: Shortness Of Breath Stated Complaint: SHORTNESS OF BREATH Time Seen by Provider: 03/25/18 13:33 Mode of Arrival: Wheelchair Information source: Patient Notes: Patient states that this morning he was setting out boxes in the heat [place] the [employer] and started to feel fatigued. Patient states it was very hot and he did not feel well. Patient states that he decided to come and get evaluated. Patient states that he did not have any shortness of breath at the time although he did write this on his sign in sheet when he checked in today because he was not certain how to describe his symptoms. Patient denies any chest pain, abdominal pain or back pain. Patient denies any cough or cold symptoms. Patient denies any nausea vomiting or diarrhea. Patient states he has been treated for UTI for the past 2 weeks and has been on antibiotics. Patient states he initially was on Levaquin but was switched to doxycycline. Patient states he has been seeing his urologist for the hematuria. TRAVEL OUTSIDE OF THE [place] IN LAST 30 DAYS: No - HPI Onset: This morning Onset/Duration: Better Quality of pain: No pain Pain Level: Denies Associated symptoms: Other - Fatigue. denies: Body/muscle aches, Chest pain, Nonproductive cough, Productive cough, Fever, Nausea, Vomiting, Shortness of breath Exacerbated by: Movement, Walking Relieved by: Remaining still Similar symptoms previously: No Recently seen / treated by doctor: No - Related Data Allergies/Adverse Reactions: Sulfa (Sulfonamide Antibiotics) Allergy (Verified 03/25/18 13:38) Past Medical History - General Information source: Patient - Social History Smoking Status: Former Smoker Chew tobacco use (# tins/day): No Frequency of alcohol use: Rare Drug Abuse: None Occupation: None Lives with: Alone Family History: DM, Reviewed & Not Pertinent Patient has suicidal ideation: No Patient has homicidal ideation: No - Past Medical History Cardiac Medical History: Reports: Hx Atrial Fibrillation, Hx Coronary Artery Disease, Hx Hypercholesterolemia, Hx Hypertension - NOT NOW,LOST WEIGHT Denies: Hx Heart Attack Pulmonary Medical History: Reports: Hx Bronchitis, Hx Pneumonia Denies: Hx Asthma, Hx COPD Neurological Medical History: Reports: Hx Seizures - YEARS AGO,I THINK IT WAS THE VALIUM,STOPPED DILANTIN 10 YRS. Denies: Hx Cerebrovascular Accident Endocrine Medical History: Reports: Hx Diabetes Mellitus Type 2 Renal/ Medical History: Reports: Hx Kidney Stones. Denies: Hx Peritoneal Dialysis GI Medical History: Reports: Hx Ulcer - YEARS AGO. Denies: Hx Hepatitis, Hx Hiatal Hernia Musculoskeletal Medical History: Reports Hx Arthritis, Reports Hx Gout Infectious Medical History: Denies: Hx Hepatitis Past Surgical History: Reports: Hx Appendectomy, Hx Cardiac Catheterization, Hx Cardiac Surgery - stent x2, Hx Cholecystectomy, Hx Coronary Stent, Hx Urinary Tract Surgery - Bilateral ureteral stents placed 08-02-13.. Denies: Hx Open Heart Surgery, Hx Pacemaker - Immunizations Immunizations up to date: No Hx Diphtheria, Pertussis, Tetanus Vaccination: No Review of Systems - Review of Systems Constitutional: Malaise, Recent illness - Being treated for UTI. denies: Fever EENT: No symptoms reported Cardiovascular: No symptoms reported. denies: Chest pain, Palpitations, Dizziness, Lightheaded Respiratory: No symptoms reported. denies: Cough, Short of breath Gastrointestinal: No symptoms reported. denies: Abdominal pain, Diarrhea, Nausea, Vomiting, Constipation Genitourinary: Hematuria. denies: Dysuria, Flank pain Male Genitourinary: No symptoms reported Musculoskeletal: No symptoms reported. denies: Back pain Skin: No symptoms reported Hematologic/Lymphatic: No symptoms reported Neurological/Psychological: No symptoms reported. denies: Confusion, Lost consciousness, Headaches Physical Exam - Vital signs Vitals: Temp Pulse Resp BP Pulse Ox 98.4 F 73 16 110/78 95 03/25/18 13:21 03/25/18 13:21 03/25/18 13:21 03/25/18 13:21 03/25/18 13:21 - General General appearance: Appears well, Alert In distress: None - HEENT Head: Normocephalic, Atraumatic Eyes: Normal Conjunctiva: Normal Nasal: Normal Mouth/Lips: Normal Mucous membranes: Normal Neck: Normal, Supple. No: Lymphadenopathy - Respiratory Respiratory status: No respiratory distress Chest status: Nontender Breath sounds: Normal. No: Rales, Rhonchi, Stridor, Wheezing Chest palpation: Normal - Cardiovascular Rhythm: Regular Heart sounds: S1 appreciated, S2 appreciated Murmur: No - Abdominal Inspection: Normal Distension: No distension Bowel sounds: Normal Tenderness: Nontender Organomegaly: No organomegaly - Back Back: Normal, Nontender. No: CVA tenderness - Extremities General upper extremity: Normal inspection, Nontender, Normal ROM General lower extremity: Normal inspection, Nontender, Normal ROM - Neurological Neuro grossly intact: Yes Cognition: Normal Ramiro Coma Scale Eye Opening: Spontaneous Ramiro Coma Scale Verbal: Oriented [place] Coma Scale Motor: Obeys Commands [place] Coma Scale Total: 15 - Psychological Associated symptoms: Normal affect, Normal mood - Skin Skin Temperature: Warm Skin Moisture: Dry Skin Color: Normal Course - Re-evaluation Re-evalutation: 03/25/18 18:50 Patient resting comfortably, denies any complaints at this time. Patient denies any significant fatigue. Patient continues without any chest pain, cough , shortness of breath, abdominal or back pain. Discussed with patient results of his urinalysis and that he does still have hematuria. Patient's primary doctor as well as urologist are currently aware of this and he is being treated with doxycycline at this time based on his last urine culture. Patient advised that a repeat culture will be performed but he should follow-up with his doctors for recheck. Patient with 2 negative troponin cycle at least 3 hours apart. At no time did patient have any chest pain symptoms. Patient states that he signed in with the complaint of shortness of breath but he never really had shortness of breath stating that he actually just felt fatigued when he was moving around [place] [employer] today. Patient advised of his renal function test results today. Patient's BUN and creatinine is in the range of where he has been running on previous visits. 03/25/18 18:[address] Hawley who agrees with discharge plan of care - Vital Signs Vital signs: Temp Pulse Resp BP Pulse Ox 97.4 F 65 16 129/78 H 99 03/25/18 17:50 03/25/18 17:50 03/25/18 17:50 03/25/18 17:50 03/25/18 17:50 - Laboratory Result Diagrams: 03/25/18 13:55 03/25/18 13:55 Laboratory results interpreted by me: 03/25/18 03/25/18 03/25/18 13:55 13:55 13:55 RDW 17.5 H BUN 21 H Creatinine 1.51 H Est GFR ( Amer) 55 L Est GFR (Non-Af Amer) 45 L Glucose 119 H Calcium 10.4 H Creatine Kinase 279 H CK-MB (CK-2) 6.25 H Urine Protein Urine Glucose (UA) Urine Blood 03/25/18 17:15 RDW BUN Creatinine Est GFR ( Amer) Est GFR (Non-Af Amer) Glucose Calcium Creatine Kinase CK-MB (CK-2) Urine Protein 30 H Urine Glucose (UA) >=500 H Urine Blood LARGE H 03/25/18 19:20 Labs- Entire Visit 03/25/18 03/25/18 03/25/18 13:55 13:55 13:55 WBC 6.8 RBC 5.25 Hgb 15.2 Hct 45.5 MCV 87 MCH 29.0 MCHC 33.5 RDW 17.5 H Plt Count 178 Seg Neutrophils % 53.7 Lymphocytes % 35.7 Monocytes % 7.9 Eosinophils % 2.0 Basophils % 0.7 Absolute Neutrophils 3.6 Absolute Lymphocytes 2.4 Absolute Monocytes 0.5 Absolute Eosinophils 0.1 Absolute Basophils 0.0 Sodium 142.1 Potassium 4.9 Chloride 103 Carbon Dioxide 28 Anion Gap 11 BUN 21 H Creatinine 1.51 H Est GFR ( Amer) 55 L Est GFR (Non-Af Amer) 45 L Glucose 119 H Calcium 10.4 H Total Bilirubin 0.6 Direct Bilirubin 0.3 Neonat Total Bilirubin Not Reportable Neonat Direct Bilirubin Not Reportable Neonat Indirect Bili Not Reportable AST 36 ALT 35 Alkaline Phosphatase 71 Creatine Kinase 279 H CK-MB (CK-2) 6.25 H Troponin I < 0.012 Total Protein 6.9 Albumin 3.9 Urine Color Urine Appearance Urine pH Ur Specific [place] Urine Protein Urine Glucose (UA) Urine Ketones Urine Blood Urine Nitrite Urine Bilirubin Urine Urobilinogen Ur Leukocyte Esterase Urine WBC (Auto) Urine RBC (Auto) U Hyaline Cast (Auto) Squamous Epi Cells Auto Urine Mucus (Auto) Urine Ascorbic Acid 03/25/18 03/25/18 17:15 17:15 WBC RBC Hgb Hct MCV MCH MCHC RDW Plt Count Seg Neutrophils % Lymphocytes % Monocytes % Eosinophils % Basophils % Absolute Neutrophils Absolute Lymphocytes Absolute Monocytes Absolute Eosinophils Absolute Basophils Sodium Potassium Chloride Carbon Dioxide Anion Gap BUN Creatinine Est GFR ( Amer) Est GFR (Non-Af Amer) Glucose Calcium Total Bilirubin Direct Bilirubin Neonat Total Bilirubin Neonat Direct Bilirubin Neonat Indirect Bili AST ALT Alkaline Phosphatase Creatine Kinase CK-MB (CK-2) Troponin I < 0.012 Total Protein Albumin Urine Color YELLOW Urine Appearance SLIGHTLY-CLOUDY Urine pH 5.0 Ur Specific [place] 1.018 Urine Protein 30 H Urine Glucose (UA) >=500 H Urine Ketones NEGATIVE Urine Blood LARGE H Urine Nitrite NEGATIVE Urine Bilirubin NEGATIVE Urine Urobilinogen NEGATIVE Ur Leukocyte Esterase NEGATIVE Urine WBC (Auto) 20 Urine RBC (Auto) >182 U Hyaline Cast (Auto) 1 Squamous Epi Cells Auto <1 Urine Mucus (Auto) RARE Urine Ascorbic Acid NEGATIVE - Diagnostic Test Radiology reviewed: Reports reviewed Discharge - Discharge Clinical Impression: Fatigue Qualifiers: Fatigue type: unspecified Qualified Code(s): R53.83 - Other fatigue Hematuria Qualifiers: Hematuria type: unspecified type Qualified Code(s): R31.9 - Hematuria, unspecified Condition: Stable Disposition: HOME, SELF-CARE Instructions: Fatigue ([facility]), Hematuria ([facility]) Additional Instructions: Return immediately for any new or worsening symptoms Followup with your primary care provider, call tomorrow to make a followup appointment Follow-up with your urologist for a recheck. Your repeat urinalysis today did continue to demonstrate blood in the urine. Continue to take the antibiotic that you are prescribed. We did perform a repeat urine culture today and will call if you need any different treatment. 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 Be sure to stay well-hydrated Referrals: CARLO KWON MD [Primary Care Provider] - Follow up in 3-5 days
[2018-03-25 17:42] LABS: APPEARANCE,URINE SLIGHTLY-CLOUDY; BILIRUBIN,URINE NEGATIVE (NEGATIVE); COLOR,URINE YELLOW; GLUCOSE, URINE >=500 mg/dL (NEGATIVE); KETONES,URINE NEGATIVE (NEGATIVE); LEUKOCYTE ESTERASE,URINE NEGATIVE (NEGATIVE); NITRITE,URINE NEGATIVE (NEGATIVE); PROTEIN,URINE 30 mg/dL (NEGATIVE); URINE SPECIFIC GRAVITY 1.018; UROBILINOGEN,URINE NEGATIVE mg/dL (<2.0)
[2018-03-25 19:37] VITALS: BP 124/72
--- NOTE | 2018-03-25 21:11 | EKG REPORT ---
SEVERITY:- ABNORMAL ECG - SINUS RHYTHM RIGHT BUNDLE BRANCH BLOCK : Confirmed by: Malu Kay MD 25-Mar-2018 21:09:37
== END 2018-03-25 19:36 | disposition home or self-care (01) ==
LOC: ER 13:03
DX: R53.83 Other fatigue (principal); R53.81 Other malaise; N39.0 Urinary tract infection, site not specified; R31.9 Hematuria, unspecified; I25.10 Atherosclerotic heart disease of native coronary artery without angina pectoris; E11.9 Type 2 diabetes mellitus without complications; Z88.2 Allergy status to sulfonamides; Z87.891 Personal history of nicotine dependence; Z87.442 Personal history of urinary calculi; Z95.5 Presence of coronary angioplasty implant and graft
CPT/HCPCS: 36415; 71046; 80053; 81001; 82550; 82553; 84484; 85025; 87086; 93005; 93010; 99285

== ENCOUNTER 2018-10-16 19:16 | Emergency (ER) | payer MEDICARE, MEDICAID ==
--- NOTE | 2018-10-16 19:24 | ER Document Report ---
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 He denies head injuries or frequent falls, no episodes of urinary incontinence or unsteady gait. Location: Left side of the head/forehead Onset: 3 weeks ago Provocation: "Turning my head" Quality: "Lightening sharp" Radiation: Throughout the left side of the head and face Severity: Moderate Timing: Episodic and intermittent History of headaches: "Every now and then" Recent head injury: None Vision changes: None Trouble walking: No change from baseline Associated symptoms: No fevers or chills, no cough or congestion, no confusion or disorientation REVIEW OF SYSTEMS: CONSTITUTIONAL : Denies fever or chills, no sweats. Denies recent illness. EENT: Denies eye, ear, throat, or mouth pain or symptoms. Denies nasal or sinus congestion. CARDIOVASCULAR: Denies chest pain. RESPIRATORY: Denies cough, cold, or chest congestion. Denies shortness of breath, difficulty breathing, or wheezing. GASTROINTESTINAL: Denies abdominal pain. Denies nausea, vomiting, or diarrhea. Denies constipation. GENITOURINARY: Denies difficulty urinating, painful urination, burning, frequency, or blood in urine. MUSCULOSKELETAL: Denies body aches. Denies neck or back pain or joint pain or swelling. SKIN: Denies rash or skin lesions. HEMATOLOGIC : Denies easy bruising or bleeding. LYMPHATIC: Denies swollen, enlarged glands. NEUROLOGICAL: Positive for headaches. Denies altered mental status or loss of consciousness. Denies weakness or paralysis or loss of use of either side. Denies problems with gait or speech. Denies sensory or motor loss. PSYCHIATRIC: Denies anxiety or stress or depression. All other systems reviewed and negative. PHYSICAL EXAMINATION: GENERAL: Well-appearing, well-nourished and in no acute distress. HEAD: Atraumatic, normocephalic. No scalp deformity, depression, or crepitance. EYES: Pupils are 3 mm and equal/round/reactive to light, extraocular movements intact, sclera anicteric, conjunctiva are normal. ENT: Nares patent bilaterally, oropharynx clear without exudates or palatal petechia. Moist mucous membranes. No tonsil hypertrophy. NECK: Normal range of motion, supple without lymphadenopathy. LUNGS: Breath sounds present, equal, and clear to auscultation bilaterally. No wheezes, rales, or rhonchi. HEART: Regular rate and rhythm without murmurs, rubs, or gallops. 2+ peripheral pulses. Normal capillary refill. ABDOMEN: Soft, nontender, nondistended. Normoactive bowel sounds. No guarding, no rebound. No masses appreciated. BACK: Normal contour, no midline tenderness. Rectal exam deferred. EXTREMITIES: Normal range of motion, no pitting or edema. No cyanosis. NEUROLOGICAL: No focal neurological deficits. Cranial nerves III-XII grossly intact. Moves all extremities spontaneously and on command. PSYCH: Normal mood, normal affect. No suicidal thoughts/ideations. No homicidal thoughts/ideations. No hallucinations. SKIN: Warm, dry, normal turgor, no rashes or lesions noted. ASSESSMENT AND PLAN: This patient is a 73-year-old male who presents with left-sided headache that is sharp in nature and sounds similar to peripheral neuropathy such as trigeminal neuralgia. 1. Will obtain labs, urine, and head CT. 2. Will reassess. TRAVEL OUTSIDE OF THE [place] IN LAST 30 DAYS: No - Related Data Allergies/Adverse Reactions: Sulfa (Sulfonamide Antibiotics) Allergy (Verified 03/25/18 13:38) Past Medical History - General Information source: Patient, Relative - Social History Smoking Status: Never Smoker Chew tobacco use (# tins/day): No Frequency of alcohol use: None Drug Abuse: None Lives with: Family Family History: DM, Reviewed & Not Pertinent Patient has suicidal ideation: No Patient has homicidal ideation: No - Past Medical History Cardiac Medical History: Reports: Hx Atrial Fibrillation, Hx Coronary Artery Disease, Hx Hypercholesterolemia, Hx Hypertension - NOT NOW,LOST WEIGHT Denies: Hx Heart Attack Pulmonary Medical History: Reports: Hx Bronchitis, Hx Pneumonia Denies: Hx Asthma, Hx COPD EENT Medical History: Reports: None Neurological Medical History: Reports: Hx Seizures - YEARS AGO,I THINK IT WAS THE VALIUM,STOPPED DILANTIN 10 YRS. Denies: Hx Cerebrovascular Accident Endocrine Medical History: Reports: Hx Diabetes Mellitus Type 2 Renal/ Medical History: Reports: Hx Kidney Stones. Denies: Hx Peritoneal Dialysis Malignancy Medical History: Reports None GI Medical History: Reports: Hx Ulcer - YEARS AGO. Denies: Hx Hepatitis, Hx Hiatal Hernia Musculoskeletal Medical History: Reports Hx Arthritis, Reports Hx Gout Skin Medical History: Reports None Psychiatric Medical History: Reports: None Traumatic Medical History: Reports: None Infectious Medical History: Reports: None. Denies: Hx Hepatitis Past Surgical History: Reports: Hx Appendectomy, Hx Cardiac Catheterization, Hx Cardiac Surgery - stent x2, Hx Cholecystectomy, Hx Coronary Stent, Hx Urinary Tract Surgery - Bilateral ureteral stents placed 08-02-13.. Denies: Hx Open Heart Surgery, Hx Pacemaker - Immunizations Immunizations up to date: Yes Hx Diphtheria, Pertussis, Tetanus Vaccination: Yes History of Influenza Vaccine for 05/2017 - 10/2017 Season: Yes Physical Exam - Vital signs Vitals: Resp 12 10/16/18 21:03 Course - Re-evaluation Re-evalutation: 10/16/18 23:[address] is negative for acute intracranial pathology. Labs, including cardiac enzymes, are normal. Patient will be discharged home with return precautions and follow-up with his primary physician. Patient voices both understanding and agreeing with the plan. - Vital Signs Vital signs: Temp Pulse Resp BP Pulse Ox 98.1 F 13 156/88 H 94 10/16/18 21:05 10/16/18 21:05 10/16/18 21:05 10/16/18 21:05 - Laboratory Result Diagrams: 10/16/18 19:47 10/16/18 19:47 Laboratory results interpreted by me: 10/16/18 10/16/18 10/16/18 19:47 19:47 19:47 RDW 17.7 H BUN 27 H Creatinine 1.48 H Est GFR ( Amer) 56 L Est GFR (Non-Af Amer) 46 L Glucose 116 H Calcium 10.8 H Urine Glucose (UA) >=500 H Urine Blood LARGE H Ur Leukocyte Esterase LARGE H - Diagnostic Test Radiology reviewed: Image reviewed, Reports reviewed - EKG Interpretation by Me EKG shows normal: Sinus rhythm Rate: Normal Rhythm: No: NSR, SVT, Arrthymia, A.Fib, A.Flutter, with a 2:1 Block, V.Tach, Torsades, V. Fib, MAT, PVC's, APC's, Other Woodward/QRS: No: Right axis deviation, Left axis deviation, RBBB, LBBB, IVCD, LAHB/ LAFB, LPHB/LPFB, Bifasicular block Voltage: No: Increased voltage, Consistant with LVH, Decreased voltage, Throughout, Limb leads P Waves: No: LILLY, LAE, Absent, AV Dissociation, Other Heart block present: No: 1st Degree, Mobitz 1, Mobitz 2, CHB (3rd degree block) When compared to previous EKG there are: Previous EKG unavailable Discharge - Discharge Clinical Impression: Trigeminal neuralgia of left side of face, Vertigo Condition: Good Disposition: HOME, SELF-CARE Instructions: Trigeminal Neuralgia ([facility]) Additional Instructions: You have been evaluated in the Emergency Department for headache and dizziness that is likely secondary to trigeminal neuralgia and your vertigo. While here, you had blood work and a CAT scan of the head that were normal and it is now safe to be discharged home. Please follow-up with your primary physician as instructed in 1 week to be rechecked. Return to the Emergency Department if you experience chest pain, difficulty walking, or any other concerning symptoms. Prescriptions: Carbamazepine [Tegretol 200 mg Tablet] 200 mg PO BID #60 tablet Referrals: CARLO KWON MD [Primary Care Provider] - Follow up as needed Print Language: Chinese
[2018-10-16 19:59] LABS: ABSOLUTE BASOPHILS # (AUTO) 0.1 10^3/uL (0.0-0.2); ABSOLUTE EOSINOPHILS # (AUTO) 0.2 10^3/uL (0.0-0.6); ABSOLUTE LYMPHOCYTES (AUTO) 1.8 10^3/uL (0.5-4.7); ABSOLUTE MONOCYTES (AUTO) 0.7 10^3/uL (0.1-1.4); ABSOLUTE NEUT (AUTO) 5.2 10^3/uL (1.7-8.2); BASOPHILS % (AUTO) 0.8 % (0-2); EOSINOPHILS % (AUTO) 2.3 % (0-6); HEMATOCRIT 45.4 % (37.9-51.0); HEMOGLOBIN 15.6 g/dL (13.5-17.0); LYMPHOCYTES % (AUTO) 22.7 % (13-45); MEAN CORPUSCULAR HEMOGLOBIN 30.2 pg (27.0-33.4); MEAN CORPUSCULAR HGB CONC 34.3 g/dL (32.0-36.0); MEAN CORPUSCULAR VOLUME 88 fl (80-97); MONOCYTES % (AUTO) 8.3 % (3-13); PLATELET COUNT 175 10^3/uL (150-450); RED BLOOD COUNT 5.15 10^6/uL (4.35-5.55); RED CELL DISTRIBUTION WIDTH 17.7 % (11.5-14.0); SEGMENTED NEUTROPHILS % (AUTO) 65.9 % (42-78); TOTAL CELLS COUNTED % (AUTO) 100 %; WHITE BLOOD COUNT 7.9 10^3/uL (4.0-10.5)
[2018-10-16 20:02] LABS: APPEARANCE,URINE SLIGHTLY-CLOUDY; BILIRUBIN,URINE NEGATIVE (NEGATIVE); COLOR,URINE YELLOW; GLUCOSE, URINE >=500 mg/dL (NEGATIVE); KETONES,URINE NEGATIVE (NEGATIVE); LEUKOCYTE ESTERASE,URINE LARGE (NEGATIVE); NITRITE,URINE NEGATIVE (NEGATIVE); PROTEIN,URINE NEGATIVE (NEGATIVE); URINE SPECIFIC GRAVITY 1.018; UROBILINOGEN,URINE NEGATIVE mg/dL (<2.0)
[2018-10-16 20:20] LABS: ALANINE AMINOTRANSFERASE 26 U/L (21-72); ALBUMIN 4.3 g/dL (3.5-5.0); ALKALINE PHOSPHATASE 82 U/L (38-126); ANION GAP 11 (5-19); ASPARTATE AMINO TRANSFERASE 25 U/L (17-59); BILIRUBIN,DIRECT 0.3 mg/dL (0.0-0.4); BILIRUBIN,TOTAL 0.5 mg/dL (0.2-1.3); BLOOD UREA NITROGEN 27 mg/dL (7-20); CALCIUM 10.8 mg/dL (8.4-10.2); CARBON DIOXIDE 27 mmol/L (22-30); CHLORIDE 103 mmol/L (98-107); GLUCOSE 116 mg/dL (75-110); POTASSIUM 4.1 mmol/L (3.6-5.0); SODIUM 140.8 mmol/L (137-145); TOTAL PROTEIN 7.1 g/dL (6.3-8.2)
[2018-10-16 20:22] LABS: ALCOHOL < 10 mg/dL (NONE DETECTED)
--- NOTE | 2018-10-16 21:32 | RADIOLOGY REPORT (SQ) ---
EXAM DESCRIPTION: CT HEAD WITHOUT IV CONTRAST COMPLETED DATE/TME: 10/16/2018 19:23 CLINICAL HISTORY: 73 years, Male, Headache, dizziness COMPARISON: None. TECHNIQUE: Contiguous axial images of the brain were obtained without the administration of intravenous contrast. Images stored on PACS. All CT scanners at this facility use dose modulation, iterative reconstruction, and/or weight based dosing when appropriate to reduce radiation dose to as low as reasonably achievable (ALARA). [facility]: Dose Right [facility]: CareDose [facility]: Dose Right [facility]: Teradose 4D [facility]: [employer] LIMITATIONS: None. Findings: Brain: No acute intracranial hemorrhage. No territorial infarct. No mass effect. Moderate cerebral atrophy. Mild periventricular and subcortical white matter changes suggesting chronic small vessel disease. Dense vascular calcifications in the bilateral intracranial internal carotid arteries. Ventricles: Within normal limits in size. Bones: No acute osseous finding. Nasal septum is deviated towards the right. Paranasal sinuses: Dome-shaped opacification in the right maxillary sinus (measuring 1 cm) possibly representing a mucous retention cyst. Mastoid air cells: Well aerated. Soft tissues: Within normal limits IMPRESSION: 1. No acute intracranial finding. 2. Cerebral atrophy and parenchymal changes suggesting chronic microvascular disease. Dense calcifications in the bilateral intracranial internal carotid arteries. TECHNICAL DOCUMENTATION: Quality ID # [id number]: Final reports with documentation of one or more dose reduction techniques (e.g., Automated exposure control, adjustment of the mA and/or kV according to patient size, use of iterative reconstruction technique) copyright 2010 [employer]- All Rights Reserved
[2018-10-16 23:53] VITALS: BP 147/88
--- NOTE | 2018-10-17 10:27 | EKG REPORT ---
SEVERITY:- ABNORMAL ECG - SINUS RHYTHM RIGHT BUNDLE BRANCH BLOCK : Confirmed by: Malu Kay MD 17-Oct-2018 10:26:08
== END 2018-10-16 23:25 | disposition home or self-care (01) ==
LOC: ER 19:16
DX: G50.0 Trigeminal neuralgia (principal); I25.10 Atherosclerotic heart disease of native coronary artery without angina pectoris; I48.91 Unspecified atrial fibrillation; E11.40 Type 2 diabetes mellitus with diabetic neuropathy, unspecified; I10 Essential (primary) hypertension
CPT/HCPCS: 36415; 70450; 80053; 80307; 81001; 84484; 85025; 93005; 93010; 99284

== ENCOUNTER → 2019-01-10 | Outpatient (CLI) | payer MEDICARE, MEDICAID ==
[2019-01-10 12:26] LABS: ABSOLUTE BASOPHILS # (AUTO) 0.1 10^3/uL (0.0-0.2); ABSOLUTE EOSINOPHILS # (AUTO) 0.2 10^3/uL (0.0-0.6); ABSOLUTE LYMPHOCYTES (AUTO) 2.3 10^3/uL (0.5-4.7); ABSOLUTE MONOCYTES (AUTO) 0.5 10^3/uL (0.1-1.4); ABSOLUTE NEUT (AUTO) 3.3 10^3/uL (1.7-8.2); EOSINOPHILS % (AUTO) 2.6 % (0-6); HEMATOCRIT 46.6 % (37.9-51.0); HEMOGLOBIN 15.5 g/dL (13.5-17.0); MEAN CORPUSCULAR HEMOGLOBIN 29.3 pg (27.0-33.4); MEAN CORPUSCULAR HGB CONC 33.2 g/dL (32.0-36.0); MEAN CORPUSCULAR VOLUME 88 fl (80-97); MONOCYTES % (AUTO) 8.2 % (3-13); PLATELET COUNT 169 10^3/uL (150-450); RED BLOOD COUNT 5.28 10^6/uL (4.35-5.55); RED CELL DISTRIBUTION WIDTH 17.3 % (11.5-14.0); SEGMENTED NEUTROPHILS % (AUTO) 52.2 % (42-78); TOTAL CELLS COUNTED % (AUTO) 100 %; WHITE BLOOD COUNT 6.3 10^3/uL (4.0-10.5)
[2019-01-10 12:46] LABS: ALANINE AMINOTRANSFERASE 25 U/L (21-72); ALBUMIN 4.2 g/dL (3.5-5.0); ALKALINE PHOSPHATASE 71 U/L (38-126); ANION GAP 10 (5-19); ASPARTATE AMINO TRANSFERASE 27 U/L (17-59); BILIRUBIN,DIRECT 0.3 mg/dL (0.0-0.4); BILIRUBIN,TOTAL 0.6 mg/dL (0.2-1.3); BLOOD UREA NITROGEN 22 mg/dL (7-20); CALCIUM 10.6 mg/dL (8.4-10.2); CARBON DIOXIDE 26 mmol/L (22-30); CHLORIDE 103 mmol/L (98-107); GLUCOSE 112 mg/dL (75-110); POTASSIUM 4.8 mmol/L (3.6-5.0); SODIUM 139.1 mmol/L (137-145); TOTAL PROTEIN 7.1 g/dL (6.3-8.2); TRIGLYCERIDES 261 mg/dL (<150)
[2019-01-10 13:07] LABS: DIRECT LDL 68 mg/dL (<100)
[2019-01-10 13:23] LABS: VLDL CHOLESTEROL 52.2 mg/dL (10-31)
== END ==
LOC: OD 11:47
PROVIDERS: ATTEND Internal Medicine
DX: D64.9 Anemia, unspecified (principal); E11.9 Type 2 diabetes mellitus without complications; E78.5 Hyperlipidemia, unspecified; R10.9 Unspecified abdominal pain; N40.0 Benign prostatic hyperplasia without lower urinary tract symptoms; E03.9 Hypothyroidism, unspecified
CPT/HCPCS: 36415; 80053; 80061; 83036; 84153; 84443; 85025

== ENCOUNTER → 2019-05-08 | Outpatient (CLI) | payer MEDICARE, MEDICAID ==
[2019-05-08 10:48] LABS: ALBUMIN 4.1 g/dL (3.5-5.0); ALKALINE PHOSPHATASE 100 U/L (38-126); ANION GAP 10 (5-19); ASPARTATE AMINO TRANSFERASE 30 U/L (17-59); BILIRUBIN,DIRECT 0.2 mg/dL (0.0-0.4); BILIRUBIN,TOTAL 0.7 mg/dL (0.2-1.3); BLOOD UREA NITROGEN 23 mg/dL (7-20); CALCIUM 10.3 mg/dL (8.4-10.2); CARBON DIOXIDE 23 mmol/L (22-30); CHLORIDE 105 mmol/L (98-107); CHOLESTEROL 127.88 mg/dL (0-200); GLUCOSE 128 mg/dL (75-110); POTASSIUM 4.5 mmol/L (3.6-5.0); TOTAL PROTEIN 7.3 g/dL (6.3-8.2); TRIGLYCERIDES 520 mg/dL (<150)
[2019-05-08 10:59] LABS: DIRECT LDL 63 mg/dL (<100)
[2019-05-09 14:37] LABS: CREATININE URINE 99.5 mg/dL (Not Estab.); MICROALBUMIN URINE 132.5 ug/mL (Not Estab.)
== END ==
LOC: OD 09:20
PROVIDERS: ATTEND Family Medicine
DX: I10 Essential (primary) hypertension (principal); E11.9 Type 2 diabetes mellitus without complications; E78.5 Hyperlipidemia, unspecified
CPT/HCPCS: 36415; 80053; 80061; 82043; 82570; 83036

== ENCOUNTER → 2019-06-04 | Outpatient (CLI) | payer MEDICARE, MEDICAID ==
--- NOTE | 2019-06-04 16:21 | RADIOLOGY REPORT (SQ) ---
EXAM DESCRIPTION: U/S ABDOMEN COMPLETE W/DOPPLER COMPLETED DATE/TIME: 06/04/2019 9:05 am REASON FOR STUDY: VENTRAL HERNIA W/O OBSTRUCTION OR GANGRENE K43.9 VENTRAL HERNIA WITHOUT OBSTRUCTI ON OR GANGRENE COMPARISON: None. TECHNIQUE: Dynamic and static grayscale images acquired of the abdomen and recorded on PACS. Additio nal selected color Doppler and spectral images recorded. Note: Study does not meet criteria for complete doppler/duplex scan LIMITATIONS: None. FINDINGS: PANCREAS: No masses. Visualized pancreatic duct normal caliber. LIVER: No masses. Echotexture normal. LIVER VASCULATURE: Normal directional flow of the main portal vein and hepatic veins. GALLBLADDER: Surgically absent. ULTRASOUND-DETECTED KAUFMAN'S SIGN: Negative. INTRAHEPATIC DUCTS AND COMMON DUCT: CBD and intrahepatic ducts normal caliber. No filling defects. INFERIOR VENA CAVA: Normal flow. AORTA: No aneurysm. RIGHT KIDNEY: Prominent, 15.5 cm. Normal echogenicity. No solid or suspicious masses. Cysts are present. The largest measures 6.6 cm. No hydronephrosis. 1.4 cm calculus. LEFT KIDNEY: Enlarged, 18 cm. Normal echogenicity. No solid or suspicious masses. Cysts are pre sent. The largest appears to measure 17.2 cm. No hydronephrosis. No calcifications. SPLEEN: Splenomegaly. 16.4 cm. PERITONEAL AND PLEURAL SPACES: No ascites or effusions. OTHER: No other significant finding. IMPRESSION: The kidneys are enlarged and contain prominent cysts. There is a left renal calculus. There is splenomegaly. TECHNICAL DOCUMENTATION: JOB ID: [id number] [employer]- All Rights Reserved Reading location - IP/workstation name: [email or web address]
== END ==
LOC: RAD 08:55
PROVIDERS: ATTEND Family Medicine
DX: K43.9 Ventral hernia without obstruction or gangrene (principal)
CPT/HCPCS: 76700; 93976

== ENCOUNTER → 2019-09-28 | Outpatient (CLI) | payer MEDICARE, MEDICAID ==
[2019-09-28 09:45] LABS: ALBUMIN 4.1 g/dL (3.5-5.0); ALKALINE PHOSPHATASE 76 U/L (38-126); ANION GAP 12 (5-19); ASPARTATE AMINO TRANSFERASE 31 U/L (17-59); BILIRUBIN,DIRECT 0.4 mg/dL (0.0-0.4); BILIRUBIN,TOTAL 0.6 mg/dL (0.2-1.3); BLOOD UREA NITROGEN 36 mg/dL (7-20); CALCIUM 10.7 mg/dL (8.4-10.2); CARBON DIOXIDE 23 mmol/L (22-30); CHLORIDE 102 mmol/L (98-107); CHOLESTEROL 154.99 mg/dL (0-200); GLUCOSE 124 mg/dL (75-110); POTASSIUM 4.3 mmol/L (3.6-5.0); TOTAL PROTEIN 7.5 g/dL (6.3-8.2); TRIGLYCERIDES 345 mg/dL (<150)
[2019-09-28 09:56] LABS: DIRECT LDL 83 mg/dL (<100)
[2019-09-29 14:36] LABS: CREATININE URINE 82.2 mg/dL (Not Estab.); MICROALBUMIN URINE 112.9 ug/mL (Not Estab.)
== END ==
LOC: OD 08:15
PROVIDERS: ATTEND Family Medicine
DX: E78.5 Hyperlipidemia, unspecified (principal); E11.9 Type 2 diabetes mellitus without complications
CPT/HCPCS: 36415; 80053; 80061; 82043; 82570; 83036

== ENCOUNTER → 2020-03-10 | Outpatient (CLI) | payer MEDICARE, MEDICAID ==
[2020-03-10 10:50] LABS: ALBUMIN 4.1 g/dL (3.5-5.0); ALKALINE PHOSPHATASE 57 U/L (38-126); ANION GAP 9 (5-19); ASPARTATE AMINO TRANSFERASE 34 U/L (17-59); BILIRUBIN,DIRECT 0.1 mg/dL (0.0-0.4); BILIRUBIN,TOTAL 0.6 mg/dL (0.2-1.3); BLOOD UREA NITROGEN 33 mg/dL (7-20); CALCIUM 10.8 mg/dL (8.4-10.2); CARBON DIOXIDE 24 mmol/L (22-30); CHLORIDE 102 mmol/L (98-107); GLUCOSE 152 mg/dL (75-110); POTASSIUM 4.7 mmol/L (3.6-5.0); TOTAL PROTEIN 7.5 g/dL (6.3-8.2)
[2020-03-11 08:51] LABS: CHOLESTEROL 153.53 mg/dL (0-200); TRIGLYCERIDES 270 mg/dL (<150)
[2020-03-11 09:01] LABS: DIRECT LDL 79 mg/dL (<100)
[2020-03-11 13:37] LABS: CREATININE URINE 73.5 mg/dL (Not Estab.); MICROALBUMIN URINE 74.5 ug/mL (Not Estab.)
== END ==
LOC: OD 09:33
PROVIDERS: ATTEND Family Medicine
DX: E78.5 Hyperlipidemia, unspecified (principal); E11.42 Type 2 diabetes mellitus with diabetic polyneuropathy
CPT/HCPCS: 36415; 80053; 80061; 82043; 82570; 83036

== ENCOUNTER 2020-05-13 13:41 | Emergency (ER) | payer MEDICARE, MEDICAID ==
--- NOTE | 2020-05-13 14:51 | ER Document Report ---
ED General - General Chief Complaint: Weakness Stated Complaint: WEAKNESS Time Seen by Provider: 05/13/20 14:30 Primary Care Provider: PATTI LEUNG MD [Primary Care Provider] - Follow up as needed Mode of Arrival: Stretcher Information source: Patient Notes: 75-year-old male coming in today with chief complaint of being short winded, lightheaded and sweaty. Today at the sink, patient suddenly became weak, diaphoretic, and short of breath. He reports multiple episodes of the last couple days where he has become short winded with minimal exertion and had to stop to take a break. He denies having chest pain. He reports 2 cardiac stents and also reports that he is due to have a stress test. Patient does not have any recent illness has not had any nausea vomiting or diarrhea. He does report that his urine has been looking like coffee with cream today. TRAVEL OUTSIDE OF THE [place] IN LAST 30 DAYS: No - Related Data Allergies/Adverse Reactions: Sulfa (Sulfonamide Antibiotics) Allergy (Verified 05/13/20 14:27) Past Medical History - General Information source: Patient - Social History Smoking Status: Former Smoker Family History: DM, Reviewed & Not Pertinent Patient has homicidal ideation: No - Past Medical History Cardiac Medical History: Reports: Hx Atrial Fibrillation, Hx Coronary Artery Disease, Hx Hypercholesterolemia, Hx Hypertension - NOT NOW,LOST WEIGHT Denies: Hx Heart Attack Pulmonary Medical History: Reports: Hx Bronchitis, Hx Pneumonia Denies: Hx Asthma, Hx COPD Neurological Medical History: Reports: Hx Seizures - YEARS AGO,I THINK IT WAS THE VALIUM,STOPPED DILANTIN 10 YRS. Denies: Hx Cerebrovascular Accident Endocrine Medical History: Reports: Hx Diabetes Mellitus Type 2 Renal/ Medical History: Reports: Hx Kidney Stones. Denies: Hx Peritoneal Dialysis GI Medical History: Reports: Hx Ulcer - YEARS AGO. Denies: Hx Hepatitis, Hx Hiatal Hernia Musculoskeletal Medical History: Reports Hx Arthritis, Reports Hx Gout Infectious Medical History: Denies: Hx Hepatitis Past Surgical History: Reports: Hx Appendectomy, Hx Cardiac Catheterization, Hx Cardiac Surgery - stent x2, Hx Cholecystectomy, Hx Coronary Stent, Hx Urinary Tract Surgery - Bilateral ureteral stents placed 12-.. Denies: Hx Open Heart Surgery, Hx Pacemaker - Immunizations Immunizations up to date: Yes Hx Diphtheria, Pertussis, Tetanus Vaccination: Yes Review of Systems - Review of Systems Notes: Constitutional: No fevers. No chills. Positive for acute weakness EENT: No eye redness. No eye pain. No ear pain. No sore throat. Cardiovascular: No chest pain. No palpitations. Respiratory: No cough. Positive for shortness of breath. No respiratory distress. Gastrointestinal: No abdominal pain. No nausea, vomiting, or diarrhea. Genitourinary: Atraumatic. No lesions. No pain. No discharge. Musculoskeletal: Atraumatic. No swelling. No deformities. Skin: No rash or lesions. Positive for diaphoresis Lymphatic: No swollen lymph nodes. Neurologic: No headache. No syncope. Psychiatric: No suicidal or homicidal ideation. Physical Exam - Vital signs Vitals: Temp Pulse Resp BP Pulse Ox 98.5 F 74 16 122/78 97 05/13/20 14:08 05/13/20 14:08 05/13/20 14:08 05/13/20 14:08 05/13/20 14:08 - Notes Notes: General: Well-developed, well-nourished. In no acute distress. Non-toxic appearing. Cardiac: Well-perfused. Regular rate and rhythm. No murmurs, rubs, or gallops. Pulmonary: No respiratory distress. No cyanosis. Bilateral lung farias are clear to auscultation. Abdominal: Non-distended. Non-rigid. Bowels sounds are present in all four quadrants. No guarding or rebound. HEENT: Head is atraumatic. Conjunctivae not reddened. No tearing. PERRL. EOMI. Orbits atraumatic. No periorbital swelling or erythema. Oropharynx is without erythema, swelling, or exudates. Neck: Supple. No adenopathy. No meningismus. Dermatologic: Warm with good turgor. No rash. Atraumatic. Chest: Atraumatic. No chest wall tenderness to palpation. Musculoskeletal: Moves all extremities well. No range of motion deficits. no muscular or joint tenderness. No paraspinal muscle tenderness. no midline spinal tenderness or step-off. Genitourinary: Examination deferred Neurologic: No gross neurologic deficits. Psychiatric: Normal mood. Course - Re-evaluation Re-evalutation: 05/13/20 14:50 Patient looking well although his story is somewhat concerning given his dyspnea on exertion in the past couple of days multiple episodes and also the episode that started with sudden onset shortness of breath, dizziness, and diaphoresis. Will do a full work-up and see what we come up with. 05/13/20 19:35 Patient has reassuring lab work. He definitely has a significant urinary tract infection. Ceftriaxone was given here 1 g IV. We will send him home on Keflex for this. Due to the sudden onset shortness of breath diaphoresis and other his tory of having some exertional shortness of breath, I reached out to the patient's power lineworker and spoke to the on-call physician Dr. Rice. He said he would be happy to note in the patient's chart that we had called in that the patient will need outpatient follow-up. I discussed the case at length with Dr. De La Cruz. We decided that if the patient had a second troponin that was equally normal that we could treat his urinary infection and send him home with a promise that he will have prompt follow-up with his power lineworker and will come back here if he somehow starts to get significantly worse. Patient agrees with the plan and will return if worse. 05/13/20 19:39 Heart score: 4 - Vital Signs Vital signs: Temp Pulse Resp BP Pulse Ox 98.5 F 76 18 132/76 H 98 05/13/20 14:08 05/13/20 17:37 05/13/20 17:37 05/13/20 17:37 05/13/20 17:37 - Laboratory Result Diagrams: 05/13/20 15:08 05/13/20 15:08 Laboratory results interpreted by me: 05/13/20 05/13/20 05/13/20 15:08 15:08 15:35 RDW 16.6 H BUN 28 H Creatinine 2.10 H Est GFR ( Amer) 37 L Est GFR (MDRD) Non-Af 31 L Glucose 139 H Calcium 10.3 H Urine Protein 100 H Urine Blood LARGE H Urine Nitrite (Reflex) POSITIVE H Urine Urobilinogen 2.0 H Leukocyte Esterase Rfl LARGE H Discharge - Discharge Clinical Impression: UTI (urinary tract infection) Qualifiers: Urinary tract infection type: site unspecified Hematuria presence: with hematuria Qualified Code(s): N39.0 - Urinary tract infection, site not specified; R31.9 - Hematuria, unspecified Chronic renal insufficiency Qualifiers: Chronic kidney disease stage: unspecified stage Qualified Code(s): N18.9 - Chronic kidney disease, unspecified Dyspnea Qualifiers: Dyspnea type: unspecified Qualified Code(s): R06.00 - Dyspnea, unspecified Condition: Good Disposition: HOME, SELF-CARE Instructions: Urinary Tract Infection ([facility]) Additional Instructions: Return to the emergency department if you have any spells of shortness of breath, dizziness, and heavy sweating. Prescriptions: Cephalexin Monohydrate [Keflex 500 mg Capsule] 500 mg PO TID 10 Days #30 capsule Referrals: PATTI LEUNG MD [Primary Care Provider] - Follow up as needed
[2020-05-13 15:28] LABS: ABSOLUTE EOSINOPHILS # (AUTO) 0.1 10^3/uL (0.0-0.6); ABSOLUTE LYMPHOCYTES (AUTO) 2.2 10^3/uL (0.5-4.7); ABSOLUTE MONOCYTES (AUTO) 0.6 10^3/uL (0.1-1.4); ABSOLUTE NEUT (AUTO) 3.7 10^3/uL (1.7-8.2); BASOPHILS % (AUTO) 0.7 % (0-2); EOSINOPHILS % (AUTO) 2.1 % (0-6); HEMATOCRIT 42.4 % (37.9-51.0); HEMOGLOBIN 14.3 g/dL (13.5-17.0); MEAN CORPUSCULAR HEMOGLOBIN 30.4 pg (27.0-33.4); MEAN CORPUSCULAR HGB CONC 33.7 g/dL (32.0-36.0); MEAN CORPUSCULAR VOLUME 90 fl (80-97); MONOCYTES % (AUTO) 9.5 % (3-13); PLATELET COUNT 186 10^3/uL (150-450); RED CELL DISTRIBUTION WIDTH 16.6 % (11.5-14.0); SEGMENTED NEUTROPHILS % (AUTO) 54.7 % (42-78); TOTAL CELLS COUNTED % (AUTO) 100 %; WHITE BLOOD COUNT 6.7 10^3/uL (4.0-10.5)
[2020-05-13 15:52] LABS: ALBUMIN 3.8 g/dL (3.5-5.0); ALKALINE PHOSPHATASE 48 U/L (38-126); ANION GAP 8 (5-19); ASPARTATE AMINO TRANSFERASE 33 U/L (17-59); BILIRUBIN,DIRECT 0.3 mg/dL (0.0-0.4); BILIRUBIN,TOTAL 0.7 mg/dL (0.2-1.3); BLOOD UREA NITROGEN 28 mg/dL (7-20); CALCIUM 10.3 mg/dL (8.4-10.2); CARBON DIOXIDE 25 mmol/L (22-30); CHLORIDE 104 mmol/L (98-107); GLUCOSE 139 mg/dL (75-110); POTASSIUM 4.2 mmol/L (3.6-5.0); TOTAL PROTEIN 6.8 g/dL (6.3-8.2)
[2020-05-13 15:59] LABS: APPEARANCE,URINE TURBID; BILIRUBIN,URINE NEGATIVE (NEGATIVE); COLOR,URINE YELLOW; GLUCOSE, URINE NEGATIVE (NEGATIVE); KETONES,URINE NEGATIVE (NEGATIVE); PROTEIN,URINE 100 mg/dL (NEGATIVE); URINE SPECIFIC GRAVITY 1.014
[2020-05-13] MEDS ORDERED: CEFTRIAXONE 1 GM/D5W RTU 1 GM/50 ML RTUPB IV ONE (16:06)
--- NOTE | 2020-05-13 16:38 | RADIOLOGY REPORT (SQ) ---
EXAM DESCRIPTION: CHEST SINGLE VIEW IMAGES COMPLETED DATE/TIME: 05/13/2020 4:23 pm REASON FOR STUDY: sob COMPARISON: 03/25/2018 EXAM PARAMETERS: NUMBER OF VIEWS: One view. TECHNIQUE: Single frontal radiographic view of the chest acquired. RADIATION DOSE: NA LIMITATIONS: None. FINDINGS: LUNGS AND PLEURA: No opacities, masses or pneumothorax. No pleural effusion. MEDIASTINUM AND HILAR STRUCTURES: No masses. Contour normal. HEART AND VASCULAR STRUCTURES: Heart normal in size. Normal vasculature. BONES: No acute findings. HARDWARE: None in the chest. OTHER: No other significant finding. IMPRESSION: NO ACUTE RADIOGRAPHIC FINDING IN THE CHEST. TECHNICAL DOCUMENTATION: JOB ID: [id number] [address]- All Rights Reserved Reading location - IP/workstation name: [email or web address]
[2020-05-13 18:53] VITALS: BP 132/76
--- NOTE | 2020-05-13 18:59 | EKG REPORT ---
SEVERITY:- ABNORMAL ECG - SINUS RHYTHM VENTRICULAR PREMATURE COMPLEX RBBB AND LAFB : Confirmed by: Pritesh Kiran MD 13-May-2020 18:59:08
== END 2020-05-13 20:13 | disposition home or self-care (01) ==
LOC: ER 13:41
DX: N39.0 Urinary tract infection, site not specified (principal); R31.9 Hematuria, unspecified; N18.9 Chronic kidney disease, unspecified; E11.22 Type 2 diabetes mellitus with diabetic chronic kidney disease; R06.00 Dyspnea, unspecified; R53.1 Weakness; R42 Dizziness and giddiness; R61 Generalized hyperhidrosis
CPT/HCPCS: 93005; 99285; 96365; 36415; 87086; 82550; 85025; 80053; 81001; 84484; 71045; 93010; J0696

== ENCOUNTER → 2020-05-22 | Outpatient (CLI) | payer MEDICARE, MEDICAID ==
--- NOTE | 2020-05-22 15:01 | RADIOLOGY REPORT (SQ) ---
EXAM DESCRIPTION: U/S RETROPERITON (RENAL/AORTA) IMAGES COMPLETED DATE/TIME: 05/22/2020 1:30 pm REASON FOR STUDY: CKD STAGE 3 N18.30 CHRONIC KIDNEY DISEASE, STAGE 3 UNSPECIFIED COMPARISON: 2016 TECHNIQUE: Dynamic and static grayscale images acquired of the kidneys and bladder and recorded on P ACS. Additional selected color Doppler and spectral images recorded. LIMITATIONS: None. FINDINGS: RIGHT KIDNEY: Normal size, 13.1 cm. Normal echogenicity. No solid or suspicious masses. T here is a 7.4 x 5.7 x 6 cm lower pole cyst. No hydronephrosis. No calcifications. LEFT KIDNEY: Normal size, 16.5 cm. Normal echogenicity. Severe hydronephrosis. No intrarenal calc peace are seen. BLADDER: No masses. OTHER FINDINGS: No other significant finding. IMPRESSION: Severe left hydronephrosis. No other significant finding. TECHNICAL DOCUMENTATION: JOB ID: [id number] 2010 [employer]- All Rights Reserved Reading location - IP/workstation name: [email or web address]
== END ==
LOC: RAD 12:25
PROVIDERS: ATTEND Physician Assistant Medical
DX: N18.30 Chronic kidney disease, stage 3 unspecified (principal); N13.30 Unspecified hydronephrosis
CPT/HCPCS: 76770

== ENCOUNTER → 2020-05-23 | Outpatient (CLI) | payer MEDICARE, MEDICAID ==
[2020-05-23 13:15] LABS: ANION GAP 10 (5-19); BLOOD UREA NITROGEN 31 mg/dL (7-20); CALCIUM 11.2 mg/dL (8.4-10.2); CARBON DIOXIDE 28 mmol/L (22-30); CHLORIDE 98 mmol/L (98-107); GLUCOSE 190 mg/dL (75-110); POTASSIUM 5.2 mmol/L (3.6-5.0)
== END ==
LOC: OD 12:17
PROVIDERS: ATTEND Internal Medicine Nephrology
DX: N18.30 Chronic kidney disease, stage 3 unspecified (principal)
CPT/HCPCS: 36415; 80048

== ENCOUNTER 2020-06-24 14:57 | Emergency (ER) | payer MEDICARE, MEDICAID ==
[2020-06-24 15:04] VITALS: BP 139/80
--- OUTSIDE RECORDS SUMMARY | 2020-06-24 16:38 | XMS REPORT ---
:1945 Author Organization [facility] Address [facility] [address] [place] [id number] Care Team Providers Name Role Phone MateuszfaridaMeg gonzalez Primary Care Physician Unavailable Jaye Unavailable Unavailable Friend PACassandra Unavailable Unavailable Allergies, Adverse Reactions, Alerts Allergy Name Allergy Status Severity Reaction(s) Onset Inactive Treat ing Comments Type Date Date Clinician Sulfur Sulfur Active hives 04-24 00:00: 00 Sulfa Drugs Sulfa Drugs Active Sulfamethoxa Sulfamethox Active zole azole *Sulfonamide *Sulfonamid s es Medications Ordered Filled Start Stop Current Ordering Indication Dosage Frequency Signature Comments Components Medication Medication Date Date Medication? Clinician (SIG) Name Name Finasteride 2019-08 Yes Binta Friend 1{Table QD Finast erid 5 MG Oral 0-16 PA-C t} e 5 MG Tablet 00:00: Oral 00 Tablet 1 (one) Tablet daily for 90 days Quantity: 90 {Tablet} Refills: 3 Ordered: 0 Friend Binta REGALADO Start : 0Active Finasteride 2019- Yes 1{Table QD Finasterid 5 MG Oral 0-16 t} e 5 MG Tablet 00:00: Oral 00 Tablet 1 (one) daily (5 MG) Start : 0Active Cephalexin 2019- Yes Cephalexin 500 MG Oral 0-07 500 MG Tablet 00:00: Oral 00 Tablet TAKE 1 TABLET 3 TIMES DAILY FOR 10 DAYS. Refills: 0 Start : 21-May-2020 Active Metoprolol 2020-0 Emily Aldana Metoprolol Succinate - Seun D.ONancy Succinate ER 25 MG 13:48: ER 25 MG Oral Tablet 47 Oral Extended Tablet Release 24 Extended Hour Release 24 Hour ONE TABLET BY mouth twice daily Quantity: 180 Refills: 3 Seun D.Jovan Roa Start : 0Active Jardiance No Jovan 1 QD Jardiance 10 MG Oral 4-03 Seun D.O. 10 MG Oral Tablet 00:00: Tablet 00 TAKE 1 TABLET BY MOUTH ONCE DAILY Quantity: 30 Refills: 0 Seun Diallo Jovan Start : 15-Nov-2017 Active Zetia 10 MG Yes QD 1 tablet 3-22 Orally 00:00: Once a day 00 Gabapentin Yes TID 1 capsule 300 MG 2-20 Orally 00:00: three 00 times a day Tradjenta 5 Yes Jovan 1 QD Tradjenta MG Oral 2-02 Seun D.O. 5 MG Oral Tablet 00:00: Tablet 00 TAKE 1 TABLET DAILY. Quantity: 30 Refills: 0 Jovan Kohli D.O. Start : 16-Sep-2017 Active Hydrocodone 2016-08 Yes Hydrocodon Me dicatio -Acetaminop 2-24 e-Acetamin n t aken hen 5-325 00:00: ophen as MG Oral 00 5-325 MG needed. Tablet Oral typically Tablet as qid for needed arthritis (5-325 MG) --back Start : 7Active Comments: Medication taken as needed. typically qid for arthritis- -back Aspirin 81 2016-08 Yes Jovan Aspirin 81 MG Oral 0-26 Seun D.O. MG Oral Tablet 15:33: Tablet Delayed 50 Delayed Release Release Take one tablet by mouth every day as directed Quantity: 30 Refills: 4 Jovan Kohli D.O. Start : 7Active Finasteride Yes Jovan QD Finasterid 5 MG Oral 1-12 Seun D.O. e 5 MG Tablet 00:00: Oral 00 Tablet TAKE 1 TABLET DAILY DIRECTED. Quantity: 30 Refills: 0 Jovan Kohli D.O. Start : 5Active Allopurinol Yes QD Allopurino 300 MG Oral 8-07 l 300 MG Tablet 00:00: Oral 00 Tablet TAKE 1 TABLET DAILY DIRECTED. Refills: 0 Start : 21-Mar-2014 Active ALLOPURINOL Yes QD ALLOPURINO , 300MG L, 300MG (Oral (Oral Tablet) Tablet) daily (300 MG) Active Metoprolol Yes QD 1 tablet Succinate Orally ER 25 MG Once a day Co Q-10 50 Yes QD 1 capsule MG with a meal Orally Once a day Aspirin 81 Yes QD Aspirin 81 MG Oral MG Oral Tablet Tablet Chewable Chewable daily (81 MG) Active Alprazolam Yes TID 1 tablet 0.5 MG Orally three times a day Nitrostat Yes Nitrostat 0.4 MG 0.4 MG Sublingual Sublingual Tablet Tablet Sublingual Sublingual Take 1 tablet every 5 minutes, max dose 3 as needed for chest pain Quantity: 25 Refills: 5 Active Allopurinol Yes QD 1 tablet 300 MG Orally Once a day Imdur 60 MG Yes QD Imdur 60 TB24 MG TB24 TAKE 1 TABLET ONCE DAILY. Quantity: 90 Refills: 3 Active Finasteride Yes QD 1 tablet 5 MG Orally Once a day Zetia 10 MG Yes 1 QD Zetia 10 Oral Tablet MG Oral Tablet TAKE 1 TABLET DAILY. Quantity: 90 Refills: 3 Active Colchicine Yes QD 1 tablet 0.6 MG Orally Once a day Simvastatin Yes Simvastati TABS n TABS TAKE 1 TABLET AT BEDTIME. Refills: 0 Active Jardiance Yes QD 1 tablet 10 MG Orally Once a day Vitamin B Yes Vitamin B 12 TABS 12 TABS Refills: 0 Active co-Q-10 Yes QD co-Q-10 daily Active Vitamin B12 Yes QD 1 tablet 1000 MCG Orally Once a day MetFORMIN Yes QD 1 tablet HCl ER 500 Orally mg Once a day Oxybutynin Yes 1 tablet Chloride 5 Twice a MG day Orally 90 days Isosorbide Yes 1 tablet Mononitrate Once a day ER 60 MG Orally 90 days IMDUR, 60MG Yes QD IMDUR, (Oral 60MG (Oral Tablet Tablet Extended Extended Release 24 Release 24 Hour) Hour) daily (60 MG) Active Tradjenta 5 Yes QD 1 tablet MG Orally Once a day Ezetimibe Yes QD 1 tablet 10 MG Orally Once a day B-12 1000 Yes QD 1 tablet MCG Orally Once a day Jardiance Yes QD Jardiance 10 MG Oral 10 MG Oral Tablet Tablet daily (10 MG) Active Simvastatin Yes QD 1 tablet 20 MG in the evening Orally Once a day Metoprolol Yes Q0.5D Metoprolol Succinate Succinate ER 25 MG ER 25 MG Oral Tablet Oral Extended Tablet Release 24 Extended Hour Release 24 Hour two times daily (25 MG) Active Tradjenta 5 Yes QD Tradjenta MG Oral 5 MG Oral Tablet Tablet daily (5 MG) Active Vitamin B Yes QOD Vitamin B 12 100 MCG 12 100 MCG Oral Oral Lozenge Lozenge every other day (100 MCG) Active Zetia 10 MG Yes QD Zetia 10 Oral Tablet MG Oral Tablet daily (10 MG) Active Zocor 40 MG Yes QD Zocor 40 Oral Tablet MG Oral Tablet daily (40 MG) Active Problems Condition Condition Condition Status Onset Resolution Last Treatin g Comments Name Details Category Date Date Treatment Clinician Date Hydronephro Hydronephro Problem Active sis with sis with 03-03 renal and renal and 00:00: ureteral ureteral 00 calculous calculous obstruction obstruction Hydroureter Hydroureter Problem Active 03-03 00:00: 00 Hematuria, Hematuria, Problem Active unspecified unspecified 03-03 00:00: 00 Essential Essential Problem Active (primary) (primary) 02-19 hypertensio hypertensio 00:00: n n 00 Encounter Encounter Problem Active 2016-08 for general for general 2-27 adult adult 00:00: medical medical 00 examination examination with with abnormal abnormal findings findings 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 00:00: with with 00 diabetic diabetic polyneuropa polyneuropa thy 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 3-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 of disease of 00:00: [place] 00 coronary coronary artery artery without without angina angina pectoris pectoris Chronic Chronic Problem Active pain 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 00:00: 00 Palpitation Palpitation Problem Active s s Preoperativ Preoperativ Problem Active e clearance e clearance Abnormal Abnormal Problem Active stress test stress test Shortness Shortness Problem Active of breath of breath Obesity Obesity Problem Active Diabetes Diabetes Problem Active mellitus, mellitus, type 2 type 2 Ascending Ascending Problem Active aortic aortic aneurysm aneurysm CAD CAD Problem Active (coronary (coronary artery artery disease), disease), [place] coronary coronary artery artery PAD PAD Problem Inactiv (peripheral (peripheral e artery artery disease) disease) Paroxysmal Paroxysmal Problem Active supraventri supraventri cular cular tachycardia tachycardia Right Right Problem Active bundle-bran bundle-bran ch block ch block PAD PAD Problem Active (peripheral (peripheral artery artery disease) disease) Acute Acute Problem Active Jaye, cystitis cystitis Patricia Atrial Atrial Problem Active Jaye, fibrillatio fibrillatio Patricia n n Atrophy of Atrophy of Problem Active Jaye, left kidney left kidney Patricia Bladder Bladder Problem Active Friend, outlet outlet Binta obstruction obstruction Calculus, Calculus, Problem Active Jaye, ureter ureter Patricia Chronic Chronic Problem Active Jaye, back pain back pain Patricia Chronic Chronic Problem Active Jaye, kidney kidney Patricia disease disease (CKD) stage (CKD) stage G3b/A1, G3b/A1, moderately moderately decreased decreased glomerular glomerular filtration filtration rate (GFR) rate (GFR) between between 30-44 30-44 mL/min/1.73 mL/min/1.73 square square meter and meter and albuminuria albuminuria creatinine creatinine ratio less ratio less than 30 than 30 mg/g mg/g Counseled Counseled Problem Active Jaye, by nurse by nurse Patricia Disorder of Disorder of Problem Active Jaye, calcium calcium Patricia metabolism metabolism DM DM Problem Active Jaye, (diabetes (diabetes Patricia mellitus) mellitus) Erectile Erectile Problem Active Jaye, dysfunction dysfunction Patricia Frequent Frequent Problem Active Jaye, urination urination Patricia Fungemia Fungemia Problem Active Jaye, Patricia Gout Gout Problem Active Jaye, Patricia Gross Gross Problem Active Jaye, hematuria hematuria Patricia High High Problem Active Jaye, cholesterol cholesterol Patricia History of History of Problem Active Jaye, urinary urinary Patricia tract tract infection infection Hypercalcem Hypercalcem Problem Active Jaye, ia ia Patricia Hypertensio Hypertensio Problem Active Jaye, n n Patricia Incomplete Incomplete Problem Active Jaye, emptying of emptying of Patricia bladder bladder Kidney Kidney Problem Active Jaye, stone stone Patricia Lower Lower Problem Active Jaye, urinary urinary Patricia tract tract symptoms symptoms (LUTS) (LUTS) 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 1989 Jaye, Patricia cholecystectomy, c. 1989 Jaye, Patricia Colonoscopy Jaye, Patricia Colonoscopy, Screening Jaye, Patricia [place], [place], 08/01/13--scanned onto Jaye, Sharit a epic cysto, bilat rpg, left ureteroscopy Jaye, Amena ta and laser stone debulking, dual stents placed on left, will need second procedure for clean up--10/23/13 cysto, bilat rpg, left ureteroscopy Jaye, Amena ta and stone frag, stent exchange--05/27/14 eval for PVD--fall 2014--reports Jaye, Patricia one partial blockage, no tx recommended Flu Vaccine Jaye, Patricia left ureteral stent Jaye, Patricia placement--08/02/13 (large ureter stone, several renal stones as well ) Pneumovax Jaye, Patricia repeat ureteroscopy/clean out Jaye, Patricia steinstrasse, stent exchange--03/27/14 right ureteroscopic stone Jaye, Patricia frag--08/02/13 Skin excision from back:benign per Jaye, Sharit a pt Results Test Description Test Time Test Comments Text Results Atomic Results Result Comments DP-2D 2020-05-22 Echo 19:09:00 + ++-- + [facility] : :: : Physicians : :: : [id number] : :+ + [place], [place] : : [address] + + Ec hocardiogram Report Name: Isabel Chavez Jr : 1945MRN: [id number] Age: 75 yrsAccount Number:[id number] Gender: MaleOrdering Physician: Eve Marquis Study Date: 05/22/2020 03:05 PM Reason For Study: Shortness of breath,Referring Physician: EVE MARQUIS dilated ascending aorta, dilated a ortic root History: Shortness of breath,Performed By: TANGELA WICK^^^^ dilated ascending aorta, dilated aortic root ___Interpreting physician: Ainsley Loeraight: 70 in Weight: 201 lb BSA: 2.1 m2 HR: 71 BP: 131/83 mmHg ___ProcedureA complete two-dim ensional transthoracic echocardiogram was performedincluding 2D, M-mode, spectral and tissue Doppler a nd color flow Doppler.Quality of the study is poor.Study quality was limited by poor window. Interpretation SummaryModerate concentric left ventricular hypertrophy with normal chamber size andsystolic function. Ejecti on Fraction = 60-65%.Normal right ventricular size and function.Trace aortic insufficiency.Mi ld aortic root dilatation (4 cm)Mildy dilated ascending aorta (3.9 cm) Left VentricleThe left ventricle is normal in size. Moderate concentric left ventricularhypertrophy. Mildly abnormal LV mass Index. Left ventricular syst olic functionis normal (52-72%). Ejection Fraction = 60-65%. LV Diastolic Dysfunction isGrade I . Left ventricular wall motion is normal.Right VentricleNormal right ventricular size and function.AtriaLe ft atrial size is normal. Normal Left Atrial Volume Index. Right atrial sizeis normal. IVC not visualized. The interatrial septum is intact with noevidence for an atrial septal defect.Mitral Va lveMild mitral annular calcification (MAC). No mitral valve stenosis. Tracemitral regurgitation.Tr icuspid ValveTricuspid valve is not well visualized. No tricuspid stenosis. Trace tricuspidregurgi tation. Unable to estimate RV systolic pressure based on incompletetricuspid regurgitant jet. Aortic ValveThe aortic valve is trileaflet. Aortic valve appears mildly sclerotic. Nohemodynamicall y significant valvular aortic stenosis. Trace aorticinsufficiency.Pulmonic ValvePulmonic va lve is not well visualized. There is no pulmonic valvular stenosis.Trace pulmonic valvular regurgi tation.Great VesselsMild aortic root dilatation. Mildy dilated ascending aorta. Pulmonary artery is grossly normal.Pericardium/PleuralNo hemodynamically significant pericardial effusion seen. N o pleural effusionnoted.MMode/2D Measurements & CalculationsRVDd: 3.6 cm LV IDd: 4.6 cmIVSd: 1.4 cm LVIDs: 3.2 cm LVPWd: 1.4 cmLV mass(C)d: 249.1 grams Ao root diam: 4.2 cmLV mass(C)dI: 119.1 grams/m2 Ao root area: 14.1 cm2 ACS: 1.7 cm LA dimension: 3.8 cmasc Aorta Diam: 3.9 cm LVOT di am: 2.2 cm LVOT area: 3.9 cm2TAPSE_phl: 1.8 cm RA A4Cs_phl: 12.3 zh8VBWPi/LVIDd_phl: 0.79 LA area A2: 16.1 cm2LA area A4: 14.8 cm2 LA Volume Index: 17.7 ml/q3Cksgyhy Measurements & C alculationsMV E max calvin: 43.2 cm/sec MV V2 max: 82.0 cm/secMV A max calvin: 76.2 cm/sec MV max P.7 mmHgMV E/A: 0.57 MV V2 mean: 34.0 cm/sec MV mean P.59 mmHg MV V2 VTI: 17 .8 cm MVA(VTI): 2.9 cm2MV dec time: 0.38 sec Ao V2 max: 118.7 cm/sec Ao max P.6 mmHg Ao V2 mean: 87.4 cm/sec Ao mean P.3 mmHg Ao V2 VTI: 23.7 cm WHITLEY(I,D): 2.2 cm2 WHITLEY(V,D): 2.5 cm2LV V1 max P.3 mmHg SV(LVOT): 52.4 mlLV V1 mean P.3 mmHgLV V1 max: 76.6 cm/secLV V1 mean: 54.1 cm/secLV V1 VTI: 13.3 cmPA V2 max: 70.8 cm/sec TR max calvin: 139.8 cm/secPA max P.0 mmHg TR max P.8 mmHgPA acc time: 0.13 sec RVSP(TR): 10.8 mmHgMed Peak E' Calvin: 3.8 cm/sec Lat Peak E' Calvin: 7.0 cm/secRAP systole: 3.0 mmHg PA pr(Acc el): 20.4 mmHgAVA(VTI)/BSA_phl: 1.0 RV S Vel_phl: 8.5 cm/secE/E' lat: 6.2 E/E' med: 11.3 ___Electronically signed by:Jovan Romano 03/2020 07:09 PM CBC + AUTOMATED DIFF 2018-04-24 00:00:00 Test Item Value Reference Range Comments WBC (test code = WBC) 8.6 4.2-11.8 RBC (test code = RBC) 4.96 4.4-5.8 HEMOGLOBIN (test code = HEMOGLOBIN) 14.7 13.1-17.1 HEMATOCRIT (test code = HEMATOCRIT) 44 40-50.4 MCV (test code = MCV) 89 80.8-97.4 MCH (test code = MCH) 29.6 26.6-33.0 MCHC (test code = MCHC) 33.3 32-34.9 RDW (test code = RDW) 18.0 11.8-15.5 PLATELET (test code = PLATELET) 241 147-365 MPV (test code = MPV) 8.90 6.00-12.00 SEGMENTED% (test code = SEGMENTED%) 62.7 43.7-73.5 SEGMENTED# (test code = SEGMENTED#) 5.4 1.9-7.5 LYMPHOCYTES% (test code = LYMPHOCYTES%) 28.65 17.9-45. 1 LYMPHOCYTES# (test code = LYMPHOCYTES#) 2.5 1-4 MONOCYTES% (test code = MONOCYTES%) 6.0 3.8-10 MONOCYTES# (test code = MONOCYTES#) 0.5 0.2-0.9 EOSINOPHILS% (test code = EOSINOPHILS%) 2.08 0.0-6.1 EOSINOPHILS# (test code = EOSINOPHILS#) 0.18 0.0-0.5 BASOPHILS% (test code = BASOPHILS%) 0.54 0.0-0.9 BASOPHILS# (test code = BASOPHILS#) 0.05 0.0-0.1 [facility] [id number] 00:00:00 Test Item Value Reference Range Comments SODIUM (test code = SODIUM) 137 136-145 POTASSIUM (test code = POTASSIUM) 4.3 3.5-5.1 CHLORIDE (test code = CHLORIDE) 104 98-107 CARBONDIOXIDE (test code = CARBONDIOXIDE) 22.0 17-32 GLUCOSE (test code = GLUCOSE) 183 70-99 BUN (test code = BUN) 19 7-25 CREATININESERUM (test code = CREATININESERUM) 1.38 0. 7-1.3 BUN/CREATININERATIO (test code = BUN/CREATININERATIO) 14 8-28 BILIRUBIN,Total (test code = BILIRUBIN,Total) 0.5 0. 2-1.0 CALCIUM (test code = CALCIUM) 10.3 8.6-10.5 PROTEINTOTAL (test code = PROTEINTOTAL) 6.8 6.6-8.2 ALBUMIN (test code = ALBUMIN) 3.6 3.5-5.7 ALK.PHOSPHATASE (test code = ALK.PHOSPHATASE) 77 34 -104 ALT(SGPT) (test code = ALT(SGPT)) 20 7-52 AST(SGOT) (test code = AST(SGOT)) 20 11-39 GLOBULIN (test code = GLOBULIN) 3.2 1.8-4.0 A/GRATIO (test code = A/GRATIO) 1.1 0.8-2.7 GLOMERULARFILT.RATE (test code = GLOMERULARFILT.RATE) 54 >60 FREE [id number] 00:00:00 Test Item Value Reference Range Comments FREET4 (test code = FREET4) 0.77 0.61-1.12 HEMOGLOBIN A1c (HGB AIC)2018-04-24 00:00:00 Test Item Value Reference Range Comments [id number](HGBAIC) (test code = 4548-4) 6.3 4.0-5 .6 LIPID [id number] 00:00:00 Test Item Value Reference Range Comments CHOLESTEROL (test code = CHOLESTEROL) 147 <200 TRIGLYCERIDES (test code = TRIGLYCERIDES) 315 10-149 HDLCHOLESTEROL (test code = HDLCHOLESTEROL) 25 40-1 99 LDL/HDLRATIO (test code = LDL/HDLRATIO) 2.36 0.00-4.9 7 LDLCHOLESTEROL,calc. (test code = 59 <100 LDLCHOLESTEROL,calc.) VLDLCHOLESTEROL,calc. (test code = 63 5-40 VLDLCHOLESTEROL,calc.) CHOLESTEROL/HDLRATIO (test code = 5.88 2.00-5.00 CHOLESTEROL/HDLRATIO) NON-HDLCHOLESTEROL (test code = NON-HDLCHOLESTEROL) 122 0-159 TSH 3RD [id number] 00:00:00 Test Item Value Reference Range Comments [id number] (test code = [id number]) 1.474 0.340-4.410 PDF (test code = PDF) LAB URIC [id number] 00:00:00 Test Item Value Reference Range Comments URICACID (test code = URICACID) 4.7 4.4-7.6 [id number] 00:00:00 Test Item Value Reference Range Comments COLOR (test code = COLOR) YELLOW YELLOW CLARITY (test code = CLARITY) HAZY CLEAR SPECIFICGRAVITY (test code = SPECIFICGRAVITY) 1.023 1. 005-1.025 pH (test code = pH) 5.0 5.0-8.5 URINEPROTEIN (test code = URINEPROTEIN) 30 MG/DL NEGATIVE URINEGLUCOSE (test code = URINEGLUCOSE) >=500 NEGATIVE URINEKETONE (test code = URINEKETONE) NEGATIVE NEGATIVE URINEBILIRUBIN (test code = URINEBILIRUBIN) NEGATIVE NEGA TIVE URINEBLOOD (test code = URINEBLOOD) LARGE NEGATIVE URINENITRITE (test code = URINENITRITE) NEGATIVE NEGATIVE UROBILINOGEN (test code = UROBILINOGEN) 0.2 0.2-1.0 LEUKOCYTE (test code = LEUKOCYTE) TRACE NEGATIVE Assessments Condition Name Status Diagnosis Date Treating Clinici an Ascending aortic aneurysm Active Right bundle-branch block Active Paroxysmal supraventricular tachycardia Active CAD (coronary artery disease), [place]apache Active coronary artery CAD (coronary artery disease), [place]apache Active coronary artery Paroxysmal supraventricular tachycardia Active Ascending aortic aneurysm Active Ascending aortic aneurysm Active Right bundle-branch block Active Paroxysmal supraventricular tachycardia Active CAD (coronary artery disease), [place]apache Active coronary artery PAD (peripheral artery disease) Active PAD (peripheral artery disease) Active PAD (peripheral artery disease) Active Shortness of breath Active PAD (peripheral artery disease) Active PAD (peripheral artery disease) Active PAD (peripheral artery disease) Active - 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 [place], [place] polyneuropathy E11.42 - Chronic kidney disease, stage 3 Active [place], [place] (moderate) N18.3 - Hydronephrosis with renal and ureteral Active [place], [place] calculous obstruction N13.2 - Essential (primary) hypertension I10 Active [place], [place] - Calculus of kidney N20.0 Active Ojebu oboh, [place] - Hematuria, unspecified R31.9 Active O j[place]uoboh, [place] - Hydronephrosis with renal and ureteral Active [place], [place] calculous obstruction N13.2 - Hydroureter N13.4 Active O[place]oh, I [place]ik[place] - Cellulitis of left lower limb L03.116 Active [place], [place] - 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 [place], [place] polyneuropathy E11.42 - Chronic kidney disease, stage 3 Active [place], [place] (moderate) N18.3 - Atherosclerotic heart disease of [place]apache Active [place], [place] coronary artery without angina pectoris I25.10 - Essential (primary) hypertension I10 Active [place], [place] - Neoplasm of uncertain behavior of skin Active [place], [place] D48.5 - 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 [place], [place] polyneuropathy E11.42 - Chronic kidney disease, stage 3 Active [place], [place] (moderate) N18.3 - Atherosclerotic heart disease of [place]apache Active [place], [place] coronary artery without angina pectoris I25.10 - Chronic kidney disease, stage 3 Active [place], [place] (moderate) N18.3 - Encounter for general adult medical Active [place], [place] examination with abnormal findings Z00.01 - 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 [place], [place] polyneuropathy E11.42 - Chronic kidney disease, stage 3 Active [place], [place] (moderate) N18.3 - 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 [place], [place] polyneuropathy E11.42 - Chronic kidney disease, stage 3 Active [place], [place] (moderate) N18.3 - Hypercalcemia E83.52 Active [place] , [place] - Chronic kidney disease, stage 3 Active [place], [place] (moderate) N18.3 - 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 [place], [place] polyneuropathy E11.42 - Atherosclerotic heart disease of [place] Active [place], [place] coronary artery without angina pectoris I25.10 - Calculus of kidney N20.0 Active Oj[place]u oboh, [place] - Chronic pain syndrome G89.4 Active Oj ebuoboh, [place] Encounters Start End Encounter Admission Attending Care Care Encounter Date/Time Date/Time Type Type Clinicians Facility Department ID 2020-05-26 2020-05-30 Office Urology Urology [id number] 13:36:20 [facility] 2020-05-22 Appointmen [facility] [id number] 15:00:00 15:00:00 t; [facility] Christiana Augustin 2020-05-21 2020-05-21 Appointmen [facility] [id number] 13:30:00 13:30:00 t; Eve Marquis NP 2020-03-18 2020-03-18 Appointmen [facility] [id number] 14:45:00 14:45:00 t; Abelardo Gipson D.O. 2019-09-13 2019-09-13 Appointmen [facility] CET [id number] 13:45:00 13:45:00 t; Jovan Kohli D.O. 2019-05-16 2019-05-[facility] [id number] 13:00:00 13:00:00 t; [facility] Christiana Moura MD 2019-03-12 2019-03-12 Appointmen [facility] CETW [id number] 13:15:00 13:15:00 t; Scout Zhou PA-C 2018-08-18 2018-08-18 Appointmen [facility] [id number] 08:15:00 08:15:00 t; Jovan Kohli D.O. 2018-07-24 2018-07-24 [place] [id number] 00:00:00 00:00:00 Clinic [facility] 2018-07-17 2018-07-17 Appointmen [facility] [id number] 09:45:00 09:45:00 t; Jovan Kohli D.O. 2018-05-22 2018-05-22 [facility] [id number] 11:30:00 11:30:00 t; [facility] Christiana Moura MD 2018-04-24 2018-04-24 [facility] [id number] 00:00:00 00:00:00 Clinic PA PA 2018-03-09 2018-03-09 [facility] [id number] 00:00:00 00:00:00 Clinic PA PA 2018-03-03 2018-03-03 [facility] [id number] 00:00:00 00:00:00 Clinic PA PA 2018-02-23 2018-02-23 [facility] [id number] 00:00:00 00:00:00 Clinic PA PA 2017-12-19 2017-12-19 [facility] [id number] 00:00:00 00:00:00 Clinic PA PA 2017-10-03 2017-10-03 [facility] [id number] 00:00:00 00:00:00 Clinic PA PA 2017-09-16 2017-09-16 [facility] [id number] 00:00:00 00:00:00 Clinic PA PA 2017-09-09 2017-09-09 [facility] [id number] 00:00:00 00:00:00 Clinic PA PA 2017-06-27 2017-06-27 [facility] [id number] 00:00:00 00:00:00 Clinic PA PA 2017-04-06 2017-04-06 [facility] [id number] 00:00:00 00:00:00 Clinic PA PA 2017-02-24 2017-02-24 [facility] [id number] 00:00:00 00:00:00 Clinic PA PA 2017-02-14 2017-02-14 [facility] [id number] 00:00:00 00:00:00 Clinic PA PA 2016-12-29 2016-12-29 [facility] [id number] 00:00:00 00:00:00 [facility] PA PA 2016-12-23 2016-12-23 [facility] [id number] 00:00:00 00:00:00 Clinic PA PA 2016-12-17 2016-12-17 [facility] [id number] 00:00:00 00:00:00 Clinic PA PA 2016-12-16 2016-12-16 [facility] [id number] 00:00:00 00:00:00 Clinic PA PA 2016-11-02 2016-11-02 [facility] [id number] 00:00:00 00:00:00 [facility] VAZQUEZ 2016-11-01 2016-11-01 [facility] [id number] 00:00:00 00:00:00 [facility] VAZQUEZ 2016-11-01 2016-11-01 [facility] [id number] 00:00:00 00:00:00 [facility] PA [facility] Family History Family Member Diagnosis Comments Start Date Stop Date Unspecified Malignancy Negative Family History Of. Unspecified KIDNEY STONES Father Family history of Coronary Artery Disease Mother Family history of Coronary Artery Disease Immunizations Ordered Immunization Filled Immunization Date Status Commen ts Refusal Reason Name Name Influenza Unknown Completed Unknown Pneumococcal Unknown Completed Unknown polysaccharide vaccine, 23 valent Payers Payer Name Policy Type Policy Number Effective Date Expiration D ate [employer] OT [place] [facility] Plan of Treatment Planned Activity Planned Date Details Comments Future Scheduled Test [code = ] Future Scheduled Test [code = ] Future Scheduled Test [code = ] Future Scheduled Test [code = ] Social History Social Habit Start Date Stop Date Comments Alcohol Use: Tobacco Use: quit 1973 Smoking Status Start Date Stop Date Ex-smoker (finding) Vital Signs Vital Name Observation Time Observation Value Comments Body temperature 2020-05-26 14:05:03 97.5 [degF] Heart Rate 2020-05-26 14:05:03 67 /min Pattern: Reg ular Systolic blood pressure 2020-05-26 14:05:03 135 mm[Hg] Aye ent Position: Sitting; Cuff Location: Left A rm; Cuff Size: Stand ilene Diastolic blood pressure 2020-05-26 14:05:03 84 mm[Hg] Pat ient Position: Sitting; Cuff Location: Left A rm; Cuff Size: Stand ilene Weight 2020-05-26 14:05:03 200 [lb_av] Body height 2020-05-26 14:05:03 69 [in_us] Body mass index (BMI) 2020-05-26 14:05:03 29.53 kg/m2 [Ratio] height 2018-04-24 13:30:00 72 [in_us] weight 2018-04-24 13:30:00 199.8 [lb_av] bmi 2018-04-24 13:30:00 27.09 kg/m2 heart rate 2018-04-24 13:30:00 70 /min blood pressure systolic 2018-04-24 13:30:00 130 mm[Hg] blood pressure diastolic 2018-04-24 13:30:00 78 mm[Hg] Systolic blood pressure 2020-05-21 13:19:00 118 mm[Hg] Diastolic blood pressure 2020-05-21 13:19:00 74 mm[Hg] Body height 2020-05-21 13:19:00 70 [in_us] Weight 2020-05-21 13:19:00 201.25 [lb_av] Body mass index (BMI) 2020-05-21 13:19:00 28.88 kg/m2 [Ratio] Body temperature 2020-05-21 13:19:00 97 [degF] Heart Rate 2020-05-21 13:19:00 73 /min Systolic blood pressure 2020-03-18 14:30:00 128 mm[Hg] Diastolic blood pressure 2020-03-18 14:30:00 76 mm[Hg] Body height 2020-03-18 14:30:00 70 [in_us] Weight 2020-03-18 14:30:00 208 [lb_av] Body mass index (BMI) 2020-03-18 14:30:00 29.85 kg/m2 [Ratio] Body temperature 2020-03-18 14:30:00 97.2 [degF] Heart Rate 2020-03-18 14:30:00 72 /min Hospital Discharge Instructions NameDatesDetailsHow to Access Health Information Online using Patient Portal and [employer] Apps Indication: Counseled by nurse Start: 26-May-2020 Instruction Type: Patient EducationNameDatesDetailsInstructions not documented NameDatesDetailsInstructions not documented
== END 2020-06-24 15:15 | disposition left against medical advice (07) ==
LOC: ER 14:57
DX: Z53.21 Procedure and treatment not carried out due to patient leaving prior to being seen by health care provider (principal)

== ENCOUNTER → 2020-07-31 | Outpatient (CLI) | payer MEDICARE, MEDICAID ==
[2020-07-31 12:28] LABS: ALBUMIN 3.8 g/dL (3.5-5.0); ALKALINE PHOSPHATASE 55 U/L (38-126); ANION GAP 9 (5-19); ASPARTATE AMINO TRANSFERASE 29 U/L (17-59); BILIRUBIN,DIRECT 0.2 mg/dL (0.0-0.4); BILIRUBIN,TOTAL 0.6 mg/dL (0.2-1.3); BLOOD UREA NITROGEN 30 mg/dL (7-20); CALCIUM 10.9 mg/dL (8.4-10.2); CARBON DIOXIDE 26 mmol/L (22-30); CHLORIDE 103 mmol/L (98-107); CHOLESTEROL 138.28 mg/dL (0-200); GLUCOSE 137 mg/dL (75-110); POTASSIUM 4.6 mmol/L (3.6-5.0); TOTAL PROTEIN 7.1 g/dL (6.3-8.2); TRIGLYCERIDES 224 mg/dL (<150)
[2020-07-31 12:39] LABS: DIRECT LDL 72 mg/dL (<100)
[2020-07-31 12:46] LABS: VLDL CHOLESTEROL 44.8 mg/dL (10-31)
== END ==
LOC: OD 11:25
PROVIDERS: ATTEND Family Medicine
DX: E78.5 Hyperlipidemia, unspecified (principal)
CPT/HCPCS: 36415; 80053; 80061